=== PATIENT | female | born 1945 | race Caucasian/White ===

== ENCOUNTER 2017-10-17 00:57 | Inpatient (IN) ==
[2017-10-17 04:19] LABS: Alanine Aminotransferase 23 U/L (12-78); Albumin Level 2.9 gm/dL (3.4-5.0); Albumin/Globulin Ratio 0.7 (1.1-1.8); Alkaline Phosphatase 104 U/L (46-116); Anion Gap 10.9 mEq/L (5-15); Aspartate Amino Transferase 18 U/L (15-37); Bilirubin,Total 0.2 mg/dL (0.2-1.0); Blood Urea Nitrogen 26 mg/dL (7-18); Carbon Dioxide 28 mmol/L (21.0-32.0); Chloride 103 mmol/L (98-107); Creatine Kinase 109 U/L (26-192); Globulin 4.3 gm/dl (1.3-3.2); Glucose 372 mg/dL (74-106); Potassium 3.9 mmoL/L (3.5-5.1); Sodium 138 mmol/L (136-145); Total Protein,Serum 7.2 gm/dL (6.4-8.2)
[2017-10-17 04:41] LABS: Hematocrit 42.2 % (37.0-47.0); Mean Corpuscular HGB Conc 33.1 g/dL (31.8-35.4); Mean Corpuscular Hemoglobin 30.7 pg (27.0-31.2); Red Blood Count 4.54 M/mm3 (4.20-5.40); Red Cell Distribution Width 12.9 % (11.5-17.5); White Blood Count 5.1 K/mm3 (4.8-10.8)
[2017-10-17 04:43] LABS: Basophils % 0.6 % (0.1-2.0); Eosinophils % 1.9 % (0.1-12.0); Lymphocytes # 1.1 K/mm3 (0.7-4.5); Mean Platelet Volume 8.8 fl (7.4-10.4); Neutrophils # 3.4 K/mm3 (1.8-7.8); Platelet Count 216 K/mm3 (142-424)
[2017-10-17 04:44] LABS: Eosinophils # 0.1 K/mm3 (0.0-0.4); Monocytes # 0.4 K/mm3 (0.1-1.0)
--- NOTE | 2017-10-17 08:26 | History & Physical Report ---
*Admission Date: 10/17/17 <Mirtha Souza 10/17/17 08:37> *Chief complaint: high blood pressure and chest pain <Mirtha Souza 08:37> *History of present illness: Ms. Guerra is a 72-year-old female with a history of type 2 diabetes, hypertension, hypothyroidism, and hyperlipidemia. She is a patient of Dr. Ángel Ramirez. She states yesterday she began having pain around the lower part of her chest on both sides. She took her blood pressure and it was 230/ 120. She called EMS to come and check her blood pressure. She states when they checked it it was the same, therefore they brought her to the emergency room. She states she was given medication in the emergency room and her blood pressure did come down. She is not currently having any chest pain. Her troponin was elevated, therefore cardiology was consulted. <Mirtha Souza 10/17/17 08:37> [facility] History Medical History: Reports:: Diabetes Mellitus Type 2, Hyperlipidemia, Hypertension Denies:: Cancer, Congestive Heart Failure, Chronic Obstructive Pulmonary Disease (COPD), Diabetes Mellitus Type 1, MRSA <Dre Souza10/17/17 08:37 > Other Medical History: Reports: Cataracts, Hypothyroidism <Dre Souza 08:37> Laterality Cases: Bilateral: Cataract <Dre Souza10/17/17 08:37> Other Surgeries: Yes: Tubal Ligation <Mirtha Souza 10/17/17 08:37> Amputation: No <Mirtha Souza 10/17/17 08:37> Fractures: No <Mirtha Souza 10/17/17 08:37> - *Social History Educational Level: Completed High School <Mirtha Souza 10/17/17 08:37> Smoking Status: Former smoker <Mirtha Souza 10/17/17 08:37> Alcohol Intake: never <Mirtha Souza 10/17/17 08:37> Occupational Status: unemployed <Mirtha Souza 10/17/17 08:37> Housing: house <Mirtha Souza 10/17/17 08:37> Household Members: spouse <Mirtha Souza 10/17/17 08:37> - Psychiatric History Expresses thoughts of harming self/others: None <Mirtha Souza 10/17/17 08: 37> Suicide Plan Description: No Plan <Mirtha Souza 10/17/17 08:37> *Family Hx:: Cancer, Hyperlipidemia, Hypertension, no Heart Attack, no Stroke <Mirtha Souza 10/17/17 08:37> Review of Systems - Constitutional Denies body ache(s), Denies fever(s), Denies headache(s), Denies weakness < Mirtha Souza 10/17/17 08:37> - Eyes Denies blurry vision, Denies double vision <Mirtha Souza 10/17/17 08:37> - ENT Denies nasal congestion, Denies sore throat <Mirtha Souza 10/17/17 08:37> - *Cardiovascular Reports chest pain, Denies shortness of breath, Denies irregular heart rhythm <Mirtha Souza 10/17/17 08:37> - *Respiratory Denies cough, Denies shortness of breath <Mirtha Souza 10/17/17 08:37> - *Gastrointestinal Denies abdominal pain, Denies loose stools, Denies nausea, Denies vomiting < Mirtha Souza 10/17/17 08:37> - *Genitourinary Denies difficulty urinating, Denies painful urination <Mirtha Souza 08:37> - *Musculoskeletal Denies joint pain, Denies body aches <Mirtha Souza 10/17/17 08:37> - *Neurologic Denies headache(s), Denies dizziness, Denies weakness <Mirtha Souza 08:37> Meds Home Medications Medication Instructions Recorded Confirmed Type Doxazosin Mesylate [Doxazosin 2mg 2 mg PO DAILY 10/17/17 10/17/17 History Tab] Gabapentin [Gabapentin 300mg Cap] 300 mg PO DAILY 10/17/17 10/17/17 History Insulin Aspart [Novolog] 15 unit SQ AC 10/17/17 10/17/17 History Insulin Glargine,Hum.rec.anlog 45 unit SQ BID 10/17/17 10/17/17 History [Toujeo Solostar] Levothyroxine Sodium 125 mcg PO DAILY 10/17/17 10/17/17 History [Levothyroxine 125mcg (0.125mg) Tab] Metformin HCl [Metformin 500mg 500 mg PO BID 10/17/17 10/17/17 History Tablet] Metoprolol Succinate 25 mg PO DAILY 10/17/17 10/17/17 History Metoprolol Succinate 50 mg PO HS 10/17/17 10/17/17 History Pravastatin Sodium [Pravachol] 80 mg PO DAILY 10/17/17 10/17/17 History dilTIAZem HCl [Cardizem 180mg ER 180 mg PO DAILY 10/17/17 10/17/17 History Cap] <Tu Schroeder - 10/17/17 12:03> Allergies Allergy/AdvReac Type Severity Reaction Status Date / Time Sulfa (Sulfonamide Allergy Severe S-ANAPHYLAX Verified 10/17/17 01:03 Antibiotics) IS [SULFA (SULFONAMIDE ANTIBIOTICS)] <Tu Schroeder - 10/17/17 12:03> Exam Vital signs and Labs for Last 24 Hours: Temp Pulse Resp BP Pulse Ox 98.5 F 77 18 179/64 93 L 10/17/17 07:23 10/17/17 08:00 10/17/17 07:23 10/17/17 07:23 10/17/17 07:23 Laboratory Results - last 24 hr 10/17/17 05:05: Total Creatine Kinase 123, CK-MB (CK-2) 3.1 D, CK-MB (CK-2) Rel Index 2.5, Troponin I 0.56 H 10/17/17 06:12: POC Glucose 296 10/17/17 07:30: Total Creatine Kinase 133, CK-MB (CK-2) 3.6, CK-MB (CK-2) Rel Index 2.7, Troponin I 1.17 H <Tu Schroeder - 10/17/17 12:03> Temp Pulse Resp BP Pulse Ox 98.5 F 74 18 179/64 93 L 10/17/17 07:23 10/17/17 07:23 10/17/17 07:23 10/17/17 07:23 10/17/17 07:23 Lab Results 10/17/17 01:15: WBC 5.1, RBC 4.54, Hgb 14.0, Hct 42.2, MCV 93.0, MCH 30.7, MCHC 33.1, RDW 12.9, Plt Count 216, MPV 8.8, Neut % (Auto) 67.0, Lymph % (Auto) 22.0 , Emmons % (Auto) 7.0, Eos % (Auto) 1.9, Baso % (Auto) 0.6, Neut # (Auto) 3.4, Lymph # (Auto) 1.1, Emmons # (Auto) 0.4, Eos # (Auto) 0.1, Baso # (Auto) 0.0 10/17/17 01:30: Sodium 138, Potassium 3.9, Chloride 103, Carbon Dioxide 28, Anion Gap 10.9, BUN 26 H, Creatinine 1.13 H, Estimated Creat Clear 38, Estimated GFR 47 L, Est GFR ( Amer) 57 L, Glucose 372 H, Calcium 9.0, Total Bilirubin 0.2, AST 18, ALT 23, Alkaline Phosphatase 104, Total Creatine Kinase 109, CK-MB (CK-2) 1.2, CK-MB (CK-2) Rel Index 1.1, Troponin I < 0.02, Total Protein 7.2, Albumin 2.9 L, Globulin 4.3 H, Albumin/Globulin Ratio 0.7 L 10/17/17 05:05: Total Creatine Kinase 123, CK-MB (CK-2) 3.1 D, CK-MB (CK-2) Rel Index 2.5, Troponin I 0.56 H 10/17/17 06:12: POC Glucose 296 <Mirtha Souza - 10/17/17 08:37> I & O for Last 24 hours: Intake & Output 10/14/17 10/15/17 10/16/17 10/17/17 11:59 11:59 11:59 11:59 Intake Total Balance Weight 125 lb 9.6 oz <Tu Schroeder - 10/17/17 12:03> Intake & Output 10/14/17 10/15/17 10/16/17 10/17/17 11:59 11:59 11:59 11:59 Intake Total Balance Weight 125 lb 9.6 oz <Mirtha Souza - 10/17/17 08:37> - Constitutional no acute distress <Mirtha Souza 10/17/17 08:37> - *Routine HEENT Exam Head: Present: normocephalic, atraumatic <Mirtha Souza 10/17/17 08:37> Eye: Present: EOMI, PERRL <Mirtha Souza 10/17/17 08:37> ENT: Present: mucous membranes dry <Mirtha Souza 10/17/17 08:37> - *Routine Neck Exam Present: supple, full ROM <Mirtha Souza 10/17/17 08:37> - *Routine Respiratory Exam Present: CTA bilaterally <Mirtha Souza 10/17/17 08:37> - *Routine Cardiovascular Exam Present: RRR <Mirtha Souza 10/17/17 08:37> - *Routine Abdominal Exam Present: soft, normoactive bowel sounds. Absent: tenderness <Mirtha Souza 10/17/17 08:37> - *Routine Extremities Exam Present: edema <Mirtha Souza 10/17/17 08:37> - *Routine Skin Exam Present: intact <Mirtha Souza 10/17/17 08:37> - *Routine Neurological Exam Present: alert, oriented X3 <Mirtha Souza 10/17/17 08:37> H&P: Result - Labs Labs: Cardiac Enzymes 10/17/17 10/17/17 Range/Units 05:05 07:30 Total Creatine Kinase 123 133 (26-192) U/L CK-MB (CK-2) 3.1 D 3.6 (0.0-3.6) ng/ml Troponin I 0.56 H 1.17 H (0.00-0.06) ng/ml <Tu Schroeder - 10/17/17 12:03> <Mirtha Souza 10/17/17 08:37> - Impressions CXR - Borderline cardiomegaly, no acute finding <Mirtha Souza 10/17/17 08:37> Assessment and Plan (1) Chest pain Current visit: Yes Status: Acute Category: Medical Code(s): R07.9 - Chest pain, unspecified (2) Elevated troponin Current visit: Yes Status: Acute Category: Medical Code(s): R74.8 - Abnormal levels of other serum enzymes (3) Hypertension Current visit: Yes Status: Chronic Category: Medical Code(s): I10 - Essential (primary) hypertension (4) Type 2 diabetes mellitus Current visit: Yes Status: Chronic Category: Medical Code(s): E11.9 - Type 2 diabetes mellitus without complications (5) Hyperlipidemia Current visit: Yes Status: Chronic Category: Medical Code(s): E78.5 - Hyperlipidemia, unspecified (6) Hypothyroid Current visit: Yes Status: Chronic Category: Medical Code(s): E03.9 - Hypothyroidism, unspecified <Mirtha Souza - 10/17/17 08:23> (1) Non-ST elevation [place] (NSTEMI) Current visit: Yes Status: Acute Category: Medical Code(s): I21.4 - Non- ST elevation (NSTEMI) myocardial infarction (2) Hypertensive urgency Current visit: Yes Status: Acute Category: Medical Code(s): I16.0 - Hypertensive urgency (3) Hypertension Current visit: Yes Status: Chronic Category: Medical Code(s): I10 - Essential (primary) hypertension (4) Type 2 diabetes mellitus Current visit: Yes Status: Chronic Category: Medical Code(s): E11.9 - Type 2 diabetes mellitus without complications (5) Hyperlipidemia Current visit: Yes Status: Chronic Category: Medical Code(s): E78.5 - Hyperlipidemia, unspecified (6) Hypothyroid Current visit: Yes Status: Chronic Category: Medical Code(s): E03.9 - Hypothyroidism, unspecified (7) Chronic renal insufficiency, stage III (moderate) Current visit: Yes Status: Chronic Category: Medical Code(s): N18.3 - Chronic kidney disease, stage 3 (moderate) <Tu Schroeder - 10/17/17 12:03> - Assessment and plan all Dx Assessment and Plan for all problems:: Patient seen and examined. She appears comfortable. BP not well controlled as yet. Concur with plan for cardiology consult in light of elevated Troponin c/w NSTEMI. <Tu Schroeder - 10/17/17 12:03> BP has improved slightly. Cardiology has been consulted for elevated troponin. CP has resolved. <Mirtha Souza - 10/17/17 08:37>
--- NOTE | 2017-10-17 09:29 | Consult Report ---
History of Present Illness Consult date: 10/17/17 Requesting physician: Tu Schroeder Consult reason: chest pain Chief complaint: chest pain Additional Medical History:: 1. Hypertension A. History of renal angiogram per patient several years ago without need for intervention, [place], [place] 2. Hyperlipidemia 3. Diabetes mellitus 15 years 4. History of tobacco use discontinued approximately 15 years ago 5. Obesity History of present illness: Ms. Guerra is a 72-year-old female with a history of type 2 diabetes, hypertension, hypothyroidism, and hyperlipidemia. She is a patient of Dr. Ángel Ramirez. She states yesterday she began having pain around the lower part of her chest on both sides. She took her blood pressure and it was 230/ 120. She called EMS to come and check her blood pressure. She states when they checked it it was the same, therefore they brought her to the emergency room. She states she was given medication in the emergency room and her blood pressure did come down. She is not currently having any chest pain. Her troponin was elevated, therefore cardiology was consulted. The above per Mirtha Souza PA-C for Dr. Schroeder. Patient denies any history of previous coronary artery disease with evaluation several years ago by Dr. Erika Muniz history of renal arteriogram performed in [facility] without need for intervention. Unknown as to whether patient had a cardiac catheterization at that time. [facility] History Medical History: Reports:: Diabetes Mellitus Type 2, Hyperlipidemia, Hypertension Denies:: Cancer, Congestive Heart Failure, Chronic Obstructive Pulmonary Disease (COPD), Diabetes Mellitus Type 1, MRSA Other Medical History: Reports: Cataracts, Hypothyroidism Laterality Cases: Bilateral: Cataract Other Surgeries: Yes: Tubal Ligation Amputation: No Fractures: No - *Social History Educational Level: Completed High School Smoking Status: Former smoker Alcohol Intake: never Occupational Status: unemployed Housing: house Household Members: spouse - Psychiatric History Expresses thoughts of harming self/others: None Suicide Plan Description: No Plan *Family Hx:: Cancer, Hyperlipidemia, Hypertension, no Heart Attack, no Stroke Meds Home Medications Medication Instructions Recorded Confirmed Type Doxazosin Mesylate [Doxazosin 2mg 2 mg PO DAILY 10/17/17 10/17/17 History Tab] Gabapentin [Gabapentin 300mg Cap] 300 mg PO DAILY 10/17/17 10/17/17 History Insulin Aspart [Novolog] 15 unit SQ AC 10/17/17 10/17/17 History Insulin Glargine,Hum.rec.anlog 45 unit SQ BID 10/17/17 10/17/17 History [Roeluprema Solostar] Levothyroxine Sodium 125 mcg PO DAILY 10/17/17 10/17/17 History [Levothyroxine 125mcg (0.125mg) Tab] Metformin HCl [Metformin 500mg 500 mg PO BID 10/17/17 10/17/17 History Tablet] Metoprolol Succinate 25 mg PO DAILY 10/17/17 10/17/17 History Metoprolol Succinate 50 mg PO HS 10/17/17 10/17/17 History Pravastatin Sodium [Pravachol] 80 mg PO DAILY 10/17/17 10/17/17 History dilTIAZem HCl [Cardizem 180mg ER 180 mg PO DAILY 10/17/17 10/17/17 History Cap] Allergies Allergy/AdvReac Type Severity Reaction Status Date / Time Sulfa (Sulfonamide Allergy Severe S-ANAPHYLAX Verified 10/17/17 01:03 Antibiotics) IS [SULFA (SULFONAMIDE ANTIBIOTICS)] Review of Systems - *Cardiovascular Reports chest pain - *Respiratory Reports shortness of breath with activity - *Gastrointestinal Denies abdominal pain - *Musculoskeletal Reports joint pain - *Neurologic Denies headache(s), Denies dizziness, Denies weakness Exam Vital signs and Labs for Last 24 Hours: Temp Pulse Resp BP Pulse Ox 98.5 F 74 18 179/64 93 L 10/17/17 07:23 10/17/17 07:23 10/17/17 07:23 10/17/17 07:23 10/17/17 07:23 Laboratory Results - last 24 hr 10/17/17 05:05: Total Creatine Kinase 123, CK-MB (CK-2) 3.1 D, CK-MB (CK-2) Rel Index 2.5, Troponin I 0.56 H 10/17/17 06:12: POC Glucose 296 10/17/17 07:30: Total Creatine Kinase 133, CK-MB (CK-2) 3.6, CK-MB (CK-2) Rel Index 2.7, Troponin I 1.17 H I & O for Last 24 hours: Intake & Output 10/14/17 10/15/17 10/16/17 10/17/17 11:59 11:59 11:59 11:59 Intake Total Balance Weight 125 lb 9.6 oz - *Routine Neck Exam Present: carotid bruit - *Routine Respiratory Exam Present: CTA bilaterally - *Routine Cardiovascular Exam Present: RRR, murmur - *Routine Abdominal Exam Present: soft. Absent: tenderness - *Routine Extremities Exam Comments: Chronic venous stasis changes of the lower extremities with 1+ edema noted bilaterally. Pedal pulses equal bilaterally. - *Routine Neurological Exam Present: alert, oriented X3, moving all extremities Assessment and Plan (1) Non-ST elevation [place] (NSTEMI) Current visit: Yes Status: Acute Category: Medical Code(s): I21.4 - Non- ST elevation (NSTEMI) myocardial infarction (2) Chest pain Current visit: Yes Status: Acute Category: Medical Code(s): R07.9 - Chest pain, unspecified (3) Elevated troponin Current visit: Yes Status: Acute Category: Medical Code(s): R74.8 - Abnormal levels of other serum enzymes (4) Hypertension Current visit: Yes Status: Chronic Category: Medical Code(s): I10 - Essential (primary) hypertension (5) Type 2 diabetes mellitus Current visit: Yes Status: Chronic Category: Medical Code(s): E11.9 - Type 2 diabetes mellitus without complications (6) Hyperlipidemia Current visit: Yes Status: Chronic Category: Medical Code(s): E78.5 - Hyperlipidemia, unspecified (7) Hypothyroid Current visit: Yes Status: Chronic Category: Medical Code(s): E03.9 - Hypothyroidism, unspecified - Assessment and plan all Dx Assessment and Plan for all problems:: 1. Due to chest pain with elevated troponins consistent with non-STEMI would recommend repeat proceeding with left heart catheterization today. 2. Due to elevated blood pressure would recommend increasing beta-dorota to 50 mg twice daily and adding PATI inhibitor. 3. Will try to discontinue diltiazem due to lower extremity edema 4. Due to non-STEMI and cardiac murmur on exam will obtain an echocardiogram 5. Due to carotid bruit on exam will obtain a carotid ultrasound. 6. Further recommendations to follow
--- NOTE | 2017-10-17 10:50 | Carotid Imaging Report ---
"Cerebrovascular Exam Indications: 785.9 Bruit. IMPRESSIONS 1. The bilateral vertebral arteries are patent with normal antegrade flow. 2. Study suggests less than 20% stenosis involving the right internal carotid artery and the left internal carotid artery. History: A bruit of the left carotid artery. A bruit of the right carotid artery. Coronary artery disease. Risk factors: Hypertension. Diabetes mellitus. Dyslipidemia. Carotid duplex study. Complete study and Doppler flow study including spectral analysis, color and sapp scale imaging. Height: Height: 160cm. Height: 63in. Weight: Weight: 129.3kg. Weight: 284.4lb. Body mass index: BMI: 50.5kg/m^2. Body surface area: BSA: 2.48m^2. Location: Bedside. Patient status: Inpatient. Tables: Arterial flow: + +--------+--------+ |Location |V sys |V ed | + +--------+--------+ |Right CCA - proximal|103cm/s |12.8cm/s| + +--------+--------+ |Right CCA - distal |71.7cm/s|14.5cm/s| + +--------+--------+ |Right ECA |93cm/s |--------| + +--------+--------+ |Right ICA - proximal|66.6cm/s|17cm/s | + +--------+--------+ |Right ICA - mid |67.9cm/s|18.9cm/s| + +--------+--------+ |Right ICA - distal |83.6cm/s|21.4cm/s| + +--------+--------+ |Right vertebral |37.5cm/s|--------| + +--------+--------+ |Left CCA - proximal |87.5cm/s|19.3cm/s| + +--------+--------+ |Left CCA - distal |79.3cm/s|17.8cm/s| + +--------+--------+ |Left ECA |73.7cm/s|--------| + +--------+--------+ |Left ICA - proximal |70.7cm/s|19.2cm/s| + +--------+--------+ |Left ICA - mid |68.9cm/s|18.6cm/s| + +--------+--------+ |Left ICA - distal |70.4cm/s|22.6cm/s| + +--------+--------+ |Left vertebral |60.1cm/s|--------| + +--------+--------+ Velocity ratios: + + + + + + | |Right, V sys|Right, V ed|Left, V sys|Left, V ed| + + + + + + |Max ICA/dist CCA|1.17 |1.48 |0.89 |1.27 | + + + + + + (Report amended ) Electronically signed by: Saúl Pacheco [id number]"
--- NOTE | 2017-10-17 11:05 | Pharmacy Consult Notes ---
[facility] Pharmacy VTE Monitoring - Patient Demographics Admission date: 10/17/17 Report Date: 10/17/17 Time: 11:05 Allergies/Adverse Reactions: Patient Allergies Sulfa (Sulfonamide Antibiotics) [SULFA (SULFONAMIDE ANTIBIOTICS)] Allergy ( Severe, Verified 10/17/17 01:03) S-ANAPHYLAXIS Height: 1.6 m Weight: 56.971 kg Patient Problems: Current Active Problems Hypertension (Chronic) Chest pain (Acute) Elevated troponin (Acute) Type 2 diabetes mellitus (Chronic) Hyperlipidemia (Chronic) Hypothyroid (Chronic) Non-ST elevation [place] (NSTEMI) (Acute) - VTE Risk Labs: VTE Related Lab Results Hgb 14.0 g/dL (12.2-16.2) 10/17/17 01:15 Hct 42.2 % (37.0-47.0) 10/17/17 01:15 Plt Count 216 K/mm3 (142-424) 10/17/17 01:15 BUN 26 mg/dL (7-18) H 10/17/17 01:30 Creatinine 1.13 mg/dL (0.55-1.02) H 10/17/17 01:30 Estimated Creat Clear 38 mL/min (0-300) 10/17/17 01:30 Was VTE Risk Assessment Performed: Yes VTE Score: 3 VTE Risk Level: Low Risk Clinical Trial Participant: No - Prophylaxis VTE Prophylaxis Ordered?: Yes Types of VTE Prophylaxis: TEDS Knee High Location of Applied Device: Not Applicable
[2017-10-18 05:51] LABS: Anion Gap 8.6 mEq/L (5-15); Potassium 3.6 mmoL/L (3.5-5.1)
[2017-10-18 07:51] LABS: Basophils % 0.5 % (0.1-2.0); Eosinophils # 0.2 K/mm3 (0.0-0.4); Eosinophils % 2.7 % (0.1-12.0); Hematocrit 40.4 % (37.0-47.0); Hemoglobin 12.9 g/dL (12.2-16.2); Lymphocytes # 1.3 K/mm3 (0.7-4.5); Lymphocytes % 22.4 K/mm3 (10-50); Mean Corpuscular HGB Conc 31.8 g/dL (31.8-35.4); Mean Corpuscular Volume 94.4 fl (81-99); Mean Platelet Volume 8.5 fl (7.4-10.4); Monocytes # 0.4 K/mm3 (0.1-1.0); Monocytes % 6.4 % (1.7-9.3); Platelet Count 225 K/mm3 (142-424); Red Blood Count 4.28 M/mm3 (4.20-5.40); Red Cell Distribution Width 13.2 % (11.5-17.5); White Blood Count 5.9 K/mm3 (4.8-10.8)
--- NOTE | 2017-10-18 08:19 | Progress Note ---
<Mirtha Souza - Last Filed: 10/18/17 08:17> Internal Medicine - PN: Subj *Date: 10/18/17 *Time: 08:17 Interval history: Patient is feeling much better today. She had a heart cath yesterday with 2 stents placed. She denies any pain today. Her blood pressure has still been elevated. Slept well last night and has been eating well. Exam Vital signs and Labs for Last 24 Hours: Temp Pulse Resp BP Pulse Ox 98 F 64 16 152/68 93 L 10/18/17 04:00 10/18/17 04:00 10/18/17 04:00 10/18/17 04:00 10/18/17 04:57 Laboratory Results - last 24 hr 10/17/17 07:30: Total Creatine Kinase 133, CK-MB (CK-2) 3.6, CK-MB (CK-2) Rel Index 2.7, Troponin I 1.17 H 10/17/17 11:48: Activated Clotting Time 332 H* 10/17/17 16:30: POC Glucose 154 10/17/17 20:01: POC Glucose 200 10/18/17 05:30: Sodium 138, Potassium 3.6, Chloride 105, Carbon Dioxide 28, Anion Gap 8.6, BUN 18 D, Creatinine 1.03 H, Estimated Creat Clear 40, Estimated GFR 53 L, Est GFR ( Amer) 64, Glucose 197 H 10/18/17 07:44: WBC 5.9, RBC 4.28, Hgb 12.9, Hct 40.4, MCV 94.4, MCH 30.0, MCHC 31.8, RDW 13.2, Plt Count 225, MPV 8.5, Neut % (Auto) 68.0, Lymph % (Auto) 22.4 , Woodson % (Auto) 6.4, Eos % (Auto) 2.7, Baso % (Auto) 0.5, Neut # (Auto) 4.0, Lymph # (Auto) 1.3, Woodson # (Auto) 0.4, Eos # (Auto) 0.2, Baso # (Auto) 0.0 I & O for Last 24 hours: Intake & Output 10/15/17 10/16/17 10/17/17 10/18/17 11:59 11:59 11:59 11:59 Intake Total 1775 / 1775 Output Total 900 / 900 Balance 875 / 875 Weight 125 lb 9.6 oz 280 lb 8 oz - Constitutional no acute distress - *Routine Respiratory Exam Present: CTA bilaterally - *Routine Cardiovascular Exam Present: RRR - *Routine Abdominal Exam Present: soft, normoactive bowel sounds. Absent: tenderness - *Routine Extremities Exam Present: edema Assessment and Plan (1) Non-ST elevation [place] (NSTEMI) Current visit: Yes Status: Acute Category: Medical Code(s): I21.4 - Non- ST elevation (NSTEMI) myocardial infarction (2) Hypertensive urgency Current visit: Yes Status: Acute Category: Medical Code(s): I16.0 - Hypertensive urgency (3) Hypertension Current visit: Yes Status: Chronic Category: Medical Code(s): I10 - Essential (primary) hypertension (4) Type 2 diabetes mellitus Current visit: Yes Status: Chronic Category: Medical Code(s): E11.9 - Type 2 diabetes mellitus without complications (5) Hyperlipidemia Current visit: Yes Status: Chronic Category: Medical Code(s): E78.5 - Hyperlipidemia, unspecified (6) Hypothyroid Current visit: Yes Status: Chronic Category: Medical Code(s): E03.9 - Hypothyroidism, unspecified (7) Chronic renal insufficiency, stage III (moderate) Current visit: Yes Status: Chronic Category: Medical Code(s): N18.3 - Chronic kidney disease, stage 3 (moderate) (8) Elevated troponin Current visit: Yes Status: Acute Category: Medical Code(s): R74.8 - Abnormal levels of other serum enzymes - Assessment and plan all Dx Assessment and Plan for all problems:: Patient doing well status post stenting. Cardiology to follow and will manage her blood pressure. <Tu Schroeder - Last Filed: 10/18/17 17:21> Internal Medicine - PN: Subj *Date: 10/18/17 *Time: 17:20 Exam Vital signs and Labs for Last 24 Hours: Temp Pulse Resp BP Pulse Ox 98 F 63 18 189/76 94 L 10/18/17 04:00 10/18/17 13:00 10/18/17 13:00 10/18/17 13:00 10/18/17 13:00 Laboratory Results - last 24 hr 10/17/17 20:01: POC Glucose 200 03/29/18 05:30: Sodium 138, Potassium 3.6, Chloride 105, Carbon Dioxide 28, Anion Gap 8.6, BUN 18 D, Creatinine 1.03 H, Estimated Creat Clear 40, Estimated GFR 53 L, Est GFR ( Amer) 64, Glucose 197 H 10/18/17 07:44: WBC 5.9, RBC 4.28, Hgb 12.9, Hct 40.4, MCV 94.4, MCH 30.0, MCHC 31.8, RDW 13.2, Plt Count 225, MPV 8.5, Neut % (Auto) 68.0, Lymph % (Auto) 22.4 , Woodson % (Auto) 6.4, Eos % (Auto) 2.7, Baso % (Auto) 0.5, Neut # (Auto) 4.0, Lymph # (Auto) 1.3, Woodson # (Auto) 0.4, Eos # (Auto) 0.2, Baso # (Auto) 0.0 10/18/17 11:41: POC Glucose 295 10/18/17 16:14: POC Glucose 221 I & O for Last 24 hours: Intake & Output 10/16/17 10/17/17 10/18/17 10/19/17 11:59 11:59 11:59 11:59 Intake Total 1775 / 1775 360 / 360 Output Total 900 / 900 650 / 650 Balance 875 / 875 -290 / -290 Weight 125 lb 9.6 oz 280 lb 8 oz Assessment and Plan (1) Non-ST elevation [place] (NSTEMI) Current visit: Yes Status: Acute Category: Medical Code(s): I21.4 - Non- ST elevation (NSTEMI) myocardial infarction (2) Hypertensive urgency Current visit: Yes Status: Acute Category: Medical Code(s): I16.0 - Hypertensive urgency (3) Hypertension Current visit: Yes Status: Chronic Category: Medical Code(s): I10 - Essential (primary) hypertension (4) Type 2 diabetes mellitus Current visit: Yes Status: Chronic Category: Medical Code(s): E11.9 - Type 2 diabetes mellitus without complications (5) Hyperlipidemia Current visit: Yes Status: Chronic Category: Medical Code(s): E78.5 - Hyperlipidemia, unspecified (6) Hypothyroid Current visit: Yes Status: Chronic Category: Medical Code(s): E03.9 - Hypothyroidism, unspecified (7) Chronic renal insufficiency, stage III (moderate) Current visit: Yes Status: Chronic Category: Medical Code(s): N18.3 - Chronic kidney disease, stage 3 (moderate) (8) Elevated troponin Current visit: Yes Status: Acute Category: Medical Code(s): R74.8 - Abnormal levels of other serum enzymes - Assessment and plan all Dx Assessment and Plan for all problems:: Patient seen and examined. Concur with above.
--- NOTE | 2017-10-18 08:56 | Progress Note ---
Subjective Date: 10/18/17 Time: 08:30 Principal diagnosis: NSTEMI Interval history: Neuro white female in bedside chair in no acute distress. No complaints overnight. Some soreness in the right wrist. Elevated blood pressure noted overnight with additional antihypertensive medication prescribed. Exam Vital signs and Labs for Last 24 Hours: Temp Pulse Resp BP Pulse Ox 98 F 64 16 152/68 93 L 10/18/17 04:00 10/18/17 04:00 10/18/17 04:00 10/18/17 04:00 10/18/17 04:57 Laboratory Results - last 24 hr 10/17/17 11:48: Activated Clotting Time 332 H* 10/17/17 16:30: POC Glucose 154 10/17/17 20:01: POC Glucose 200 10/18/17 05:30: Sodium 138, Potassium 3.6, Chloride 105, Carbon Dioxide 28, Anion Gap 8.6, BUN 18 D, Creatinine 1.03 H, Estimated Creat Clear 40, Estimated GFR 53 L, Est GFR ( Amer) 64, Glucose 197 H 10/18/17 07:44: WBC 5.9, RBC 4.28, Hgb 12.9, Hct 40.4, MCV 94.4, MCH 30.0, MCHC 31.8, RDW 13.2, Plt Count 225, MPV 8.5, Neut % (Auto) 68.0, Lymph % (Auto) 22.4 , [place] % (Auto) 6.4, Eos % (Auto) 2.7, Baso % (Auto) 0.5, Neut # (Auto) 4.0, Lymph # (Auto) 1.3, [place] # (Auto) 0.4, Eos # (Auto) 0.2, Baso # (Auto) 0.0 I & O for Last 24 hours: Intake & Output 10/15/17 10/16/17 10/17/17 10/18/17 11:59 11:59 11:59 11:59 Intake Total 1775 / 1775 Output Total 900 / 900 Balance 875 / 875 Weight 125 lb 9.6 oz 280 lb 8 oz - *Routine Respiratory Exam Present: CTA bilaterally - *Routine Cardiovascular Exam Present: RRR - *Routine Neurological Exam Present: alert, oriented X3, moving all extremities Progress Note: A&P (1) Non-ST elevation [place] (NSTEMI) Status: Acute Assessment and plan: Status post 2 drug-eluting stents placed to the circumflex artery. On dual antiplatelet therapy with aspirin and Brilinta. Remaining moderate disease of the LAD and right coronary artery to be treated medically. Normal ejection fraction. Current Visit: Yes (2) Hypertensive urgency Status: Acute Current Visit: Yes (3) Hypertension Status: Chronic Assessment and plan: Would recommend switching the patient's metoprolol to carvedilol in the setting of a diabetic patient. Will increase her lisinopril. Will use Norvasc as as needed medication. Recommend observing overnight due to these medication changes. Current Visit: Yes (4) Type 2 diabetes mellitus Status: Chronic Current Visit: Yes (5) Hyperlipidemia Status: Chronic Assessment and plan: Continue statin therapy. Current Visit: Yes (6) Hypothyroid Status: Chronic Current Visit: Yes (7) Chronic renal insufficiency, stage III (moderate) Status: Chronic Current Visit: Yes (8) Elevated troponin Status: Acute Current Visit: Yes Assessment and Plan for All Diagnoses:: See above.
--- NOTE | 2017-10-18 16:30 | Cardiology Report ---
PROCEDURE: 2-D M-mode and color Doppler study INDICATIONS FOR THE TEST: Chest pain COPD Heart Murmur Tobacco Smokingex Palpitations+ Fatigue Syncope Edema Hypertension+Diabetes Mellitus+ Rheumatic Fever SOB+[place]+Obesity+Hyperlipidemia+ Family History HD Additional History cad PATIENT INFORMATION HEIGHT: 63 WEIGHT: 285 GENDER: Female B/P: 179/64 2-D/M-MODE INTERPRETATION: 2-D MEASUREMENTS OBSERVED VALUES IN CMS Right Ventricular Dimension (RVDd) 2.5 Interventricular Septum (Thickness)(IVsd) 1.6 Left Ventricular Internal Dimensions(LVIDd) 4.3 Left Ventricular Posterior Wall (Thickness)(LVPWd) 1.6 Aortic Root 3.2 Aortic Cusp Separation 2.0 Left Atrial Dimensions (LAD) 3.8 2D 1. Technically difficult study because of the patient's factor and poor acoustic windows 2. The left atrium is mildly enlarged, left ventricle is normal size, mild concentric left ventricular hypertrophy, visually estimated ejection fraction 55% with no obvious regional wall motion abnormality. 3. The right atrium and right ventricle are normal size and contractility. 4. The aortic valve is minimally thickened and fibrosed. 5. The mitral and tricuspid valve leaflets are minimally thickened. 6. No significant pericardial effusion noted. 7. The pulmonic valve is poorly visualized. DOPPLER INTERROGATION: Doppler interrogation of the aortic, mitral and tricuspid valvular presence of mild mitral and tricuspid regurgitation, tricuspid and jet velocity insufficient for calculation of the right ventricular systolic pressure, diastolic parameters are inconclusive. CONCLUSION: 1. Technically difficult study because of the patient's factor and poor acoustic windows 2. Mildly enlarged left atrium, normal left ventricular size, mild concentric left ventricular hypertrophy visually estimated to fraction 55% no obvious regional wall motion abnormality, diastolic parameters are inconclusive. 3. Mild mitral and tricuspid 4. No significant pericardial effusion noted.
[2017-10-19 06:03] VITALS: BP 158/85
--- NOTE | 2017-10-19 08:17 | Progress Note ---
<Mirtha Souza - Last Filed: 10/19/17 08:16> Internal Medicine - PN: Subj *Date: 10/19/17 *Time: 08:16 Interval history: She states she is feeling well today. Her blood pressure has been better today. She tolerated her breakfast and slept well last night. She denies any pain. Exam Vital signs and Labs for Last 24 Hours: Temp Pulse Resp BP Pulse Ox 98.6 F 60 18 158/85 94 L 10/19/17 06:00 10/19/17 06:00 10/19/17 06:00 10/19/17 06:00 10/19/17 06:00 Laboratory Results - last 24 hr 10/18/17 06:08: POC Glucose 199 10/18/17 11:41: POC Glucose 295 10/18/17 16:14: POC Glucose 221 10/18/17 20:18: POC Glucose 309 10/19/17 06:11: POC Glucose 234 I & O for Last 24 hours: Intake & Output 10/16/17 10/17/17 10/18/17 10/19/17 11:59 11:59 11:59 11:59 Intake Total 1775 / 1775 900 / 900 Output Total 900 / 900 650 / 650 Balance 875 / 875 250 / 250 Weight 125 lb 9.6 oz 280 lb 8 oz 266 lb 2 oz - Constitutional no acute distress - *Routine Respiratory Exam Present: CTA bilaterally - *Routine Cardiovascular Exam Present: RRR - *Routine Abdominal Exam Present: soft, normoactive bowel sounds. Absent: tenderness - *Routine Extremities Exam Present: edema Assessment and Plan (1) Non-ST elevation [place] (NSTEMI) Current visit: Yes Status: Acute Category: Medical Code(s): I21.4 - Non- ST elevation (NSTEMI) myocardial infarction (2) Hypertensive urgency Current visit: Yes Status: Acute Category: Medical Code(s): I16.0 - Hypertensive urgency (3) Hypertension Current visit: Yes Status: Chronic Category: Medical Code(s): I10 - Essential (primary) hypertension (4) Type 2 diabetes mellitus Current visit: Yes Status: Chronic Category: Medical Code(s): E11.9 - Type 2 diabetes mellitus without complications (5) Hyperlipidemia Current visit: Yes Status: Chronic Category: Medical Code(s): E78.5 - Hyperlipidemia, unspecified (6) Hypothyroid Current visit: Yes Status: Chronic Category: Medical Code(s): E03.9 - Hypothyroidism, unspecified (7) Chronic renal insufficiency, stage III (moderate) Current visit: Yes Status: Chronic Category: Medical Code(s): N18.3 - Chronic kidney disease, stage 3 (moderate) (8) Elevated troponin Current visit: Yes Status: Acute Category: Medical Code(s): R74.8 - Abnormal levels of other serum enzymes - Assessment and plan all Dx Assessment and Plan for all problems:: Patient has been seen by cardiology and is stable to be discharged home today. <Tu Schroeder - Last Filed: 10/19/17 08:34> Internal Medicine - PN: Subj *Date: 10/19/17 *Time: 08:33 Exam Vital signs and Labs for Last 24 Hours: Temp Pulse Resp BP Pulse Ox 98.6 F 60 18 158/85 94 L 10/19/17 06:00 10/19/17 06:00 10/19/17 06:00 10/19/17 06:00 10/19/17 06:00 Laboratory Results - last 24 hr 10/18/17 06:08: POC Glucose 199 10/18/17 11:41: POC Glucose 295 10/18/17 16:14: POC Glucose 221 10/18/17 20:18: POC Glucose 309 10/19/17 06:11: POC Glucose 234 I & O for Last 24 hours: Intake & Output 10/16/17 10/17/17 10/18/17 10/19/17 11:59 11:59 11:59 11:59 Intake Total 1775 / 1775 900 / 900 Output Total 900 / 900 650 / 650 Balance 875 / 875 250 / 250 Weight 125 lb 9.6 oz 280 lb 8 oz 266 lb 2 oz Assessment and Plan (1) Non-ST elevation [place] (NSTEMI) Current visit: Yes Status: Acute Category: Medical Code(s): I21.4 - Non- ST elevation (NSTEMI) myocardial infarction (2) Hypertensive urgency Current visit: Yes Status: Acute Category: Medical Code(s): I16.0 - Hypertensive urgency (3) Hypertension Current visit: Yes Status: Chronic Category: Medical Code(s): I10 - Essential (primary) hypertension (4) Type 2 diabetes mellitus Current visit: Yes Status: Chronic Category: Medical Code(s): E11.9 - Type 2 diabetes mellitus without complications (5) Hyperlipidemia Current visit: Yes Status: Chronic Category: Medical Code(s): E78.5 - Hyperlipidemia, unspecified (6) Hypothyroid Current visit: Yes Status: Chronic Category: Medical Code(s): E03.9 - Hypothyroidism, unspecified (7) Chronic renal insufficiency, stage III (moderate) Current visit: Yes Status: Chronic Category: Medical Code(s): N18.3 - Chronic kidney disease, stage 3 (moderate) (8) Elevated troponin Current visit: Yes Status: Acute Category: Medical Code(s): R74.8 - Abnormal levels of other serum enzymes - Assessment and plan all Dx Assessment and Plan for all problems:: Patient seen and examined. Concur with plan for discharge.
--- NOTE | 2017-10-19 08:32 | Progress Note ---
Subjective Date: 10/19/17 Time: 08:24 Principal diagnosis: NSTEMI Interval history: Feeling better. No complaints. BP improved on multiple meds. OK for discharge home from cardiology standpoint. Exam Vital signs and Labs for Last 24 Hours: Temp Pulse Resp BP Pulse Ox 98.6 F 60 18 158/85 94 L 10/19/17 06:00 10/19/17 06:00 10/19/17 06:00 10/19/17 06:00 10/19/17 06:00 Laboratory Results - last 24 hr 10/18/17 06:08: POC Glucose 199 10/18/17 11:41: POC Glucose 295 10/18/17 16:14: POC Glucose 221 10/18/17 20:18: POC Glucose 309 10/19/17 06:11: POC Glucose 234 I & O for Last 24 hours: Intake & Output 10/16/17 10/17/17 10/18/17 10/19/17 11:59 11:59 11:59 11:59 Intake Total 1775 / 1775 900 / 900 Output Total 900 / 900 650 / 650 Balance 875 / 875 250 / 250 Weight 125 lb 9.6 oz 280 lb 8 oz 266 lb 2 oz - *Routine Respiratory Exam Present: CTA bilaterally - *Routine Cardiovascular Exam Present: RRR Progress Note: A&P (1) Non-ST elevation [place] (NSTEMI) Status: Acute Current Visit: Yes (2) Hypertensive urgency Status: Acute Current Visit: Yes (3) Hypertension Status: Chronic Current Visit: Yes (4) Type 2 diabetes mellitus Status: Chronic Current Visit: Yes (5) Hyperlipidemia Status: Chronic Current Visit: Yes (6) Hypothyroid Status: Chronic Current Visit: Yes (7) Chronic renal insufficiency, stage III (moderate) Status: Chronic Current Visit: Yes (8) Elevated troponin Status: Acute Current Visit: Yes Assessment and Plan for All Diagnoses:: Meds: ASA 81 mg daily Brilinta 90 mg BID atorvastatin 40 mg daily lisinopril 20 mg BID carvedilol 50 mg BID norvasc 10 mg daily Follow up in one week.
--- NOTE | 2017-10-20 14:47 | Discharge Summary ---
General - General Admission date: 10/17/17 <Mirtha Souza - 10/20/17 14:48> Discharge date: 10/19/17 <Mirtha Souza - 10/20/17 14:48> HPI HPI: Ms. Guerra is a 72-year-old female with a history of type 2 diabetes, hypertension, hypothyroidism, and hyperlipidemia. She is a patient of Dr. Ángel Ramirez. She states yesterday she began having pain around the lower part of her chest on both sides. She took her blood pressure and it was 230/ 120. She called EMS to come and check her blood pressure. She states when they checked it it was the same, therefore they brought her to the emergency room. She states she was given medication in the emergency room and her blood pressure did come down. She is not currently having any chest pain. Her troponin was elevated, therefore cardiology was consulted. <Mirtha Souza - 10/20/17 14:48> Hospital Course Hospital Course: Her BP remained elevated after her heart cath requiring titration of her medications and addition of Norvasc. At time of discharge, her blood pressures were trending downward and will be followed up with Dr. Newell as an outpt. <EldaTu Rito - 10/23/17 08:41> Her elevated troponins were consistent with a NSTEMI. Cardiology did a heart cath and the patient received 2 stents in the circumflex artery. They discontinued her diltiazem due to lower extremity edema. She was started on dual antiplatelet therapy with aspirin and Brilinta. She had a normal ejection fraction. Cardiology recommend switching the patient's metoprolol to carvedilol in the setting of a diabetic patient. They also started her on lisinopril. Her lisinopril had to be increased d/t continued elevation in BP. Due to carotid bruit on exam, a carotid ultrasound was ordered which showed less than 20% stenosis bilaterally. She was stable to be discharged home on ASA 81 mg daily, Brilinta 90 mg BID, atorvastatin 40 mg daily, lisinopril 20 mg BID , carvedilol 50 mg BID, and norvasc 10 mg daily. She will follow up with cardiology in one week. <Mirtha Souza - 10/20/17 14:48> Objective Vital signs: Temp Pulse Resp BP Pulse Ox 98.1 F 70 18 158/85 94 L 10/19/17 08:00 10/19/17 08:00 10/19/17 06:00 10/19/17 06:00 10/19/17 06:00 <EldaTu Rito - 10/23/17 08:41> Temp Pulse Resp BP Pulse Ox 98.1 F 70 18 158/85 94 L 10/19/17 08:00 10/19/17 08:00 10/19/17 06:00 10/19/17 06:00 10/19/17 06:00 <Mirtha Souza - 10/20/17 14:48> Narrative: - Constitutional no acute distress - *Routine HEENT Exam Head: Present: normocephalic, atraumatic Eye: Present: EOMI, PERRL ENT: Present: mucous membranes dry - *Routine Neck Exam Present: supple, full ROM - *Routine Respiratory Exam Present: CTA bilaterally - *Routine Cardiovascular Exam Present: RRR - *Routine Abdominal Exam Present: soft, normoactive bowel sounds. Absent: tenderness - *Routine Extremities Exam Present: edema - *Routine Skin Exam Present: intact - *Routine Neurological Exam Present: alert, oriented X3 <Mirtha Souza - 10/20/17 14:48> DS: Diagnosis - Discharge Diagnosis (1) Non-ST elevation [place] (NSTEMI) Status: Acute (2) Hypertensive urgency Status: Acute (3) Hypertension Status: Chronic (4) Type 2 diabetes mellitus Status: Chronic (5) Hyperlipidemia Status: Chronic (6) Hypothyroid Status: Chronic (7) Chronic renal insufficiency, stage III (moderate) Status: Chronic (8) Elevated troponin Status: Acute <Mirtha Souza - 10/20/17 14:34> (1) Non-ST elevation [place] (NSTEMI) Status: Acute (2) Hypertensive urgency Status: Acute (3) Hypertension Status: Chronic (4) Type 2 diabetes mellitus Status: Chronic (5) Hyperlipidemia Status: Chronic (6) Hypothyroid Status: Chronic (7) Chronic renal insufficiency, stage III (moderate) Status: Chronic (8) Elevated troponin Status: Acute <Elda,Tu Rito - 10/23/17 08:41> Discharge Plan - Patient Discharge Instructions ACTIVITY: Continue current activity <Mirtha Souza - 10/20/17 14:48> DIET: diabetic diet, low fat, low cholesterol, low salt diet <Mirtha Souza - 10/20/17 14:48> Patient Instructions: Heart-Healthy Diet <Tu Schroeder - 10/23/17 08:41> Forms: <EldaTu Rito - 10/23/17 08:41> - Follow up Plan Follow up with: Ángel Ramirez [Primary Care Provider] - 1 week <Tu Schroeder - 10/23/17 08:41> Disposition: Home, Self-Care <Tu Schroeder - 10/23/17 08:41> Home Medications: Home Medications Medication Instructions Recorded Confirmed Type Gabapentin [Gabapentin 300mg Cap] 300 mg PO DAILY 10/17/17 10/17/17 History Insulin Aspart [Novolog] 15 unit SQ AC 10/17/17 10/17/17 History Insulin Glargine,Hum.rec.anlog 45 unit SQ BID 10/17/17 10/17/17 History [Toujavedo Solostar] Levothyroxine Sodium 125 mcg PO DAILY 10/17/17 10/17/17 History [Levothyroxine 125mcg (0.125mg) Tab] Metformin HCl [Metformin 500mg 500 mg PO BID 10/17/17 10/17/17 History Tablet] <Tu Schroeder - 10/23/17 08:41> Prescriptions/Medication Reconciliation: New Aspirin [Aspirin 81mg EC Tab] 81 mg PO DAILY #30 tablet. Atorvastatin Calcium [Lipitor 40mg Tablet] 40 mg PO HS #30 tab Carvedilol [Coreg 25mg Tablet] 25 mg PO BID #60 tab Lisinopril [Zestril 20mg tab] 20 mg PO BID #60 tab Ticagrelor [Brilinta 90mg Tablet] 90 mg PO BID #60 tab Amlodipine Besylate [Norvasc 10mg tablet] 10 mg PO DAILY #30 tab Carvedilol [Coreg 25mg Tablet] 50 mg PO BID #120 tab Continue Metformin HCl [Metformin 500mg Tablet] 500 mg PO BID Levothyroxine Sodium [Levothyroxine 125mcg (0.125mg) Tab] 125 mcg PO DAILY Insulin Glargine,Hum.rec.anlog [Toujeo Solostar] 45 unit SQ BID Insulin Aspart [Novolog] 15 unit SQ AC Gabapentin [Gabapentin 300mg Cap] 300 mg PO DAILY Discontinued Metoprolol Succinate 25 mg PO DAILY Metoprolol Succinate 50 mg PO HS dilTIAZem HCl [Cardizem 180mg ER Cap] 180 mg PO DAILY Doxazosin Mesylate [Doxazosin 2mg Tab] 2 mg PO DAILY Pravastatin Sodium [Pravachol] 80 mg PO DAILY <Tu Schroeder - 10/07 08:41> - Additional Information Additional Information: Concur with above plan for discharge. <Tu Schroeder - 10/23/17 08:41>
== END 2017-10-19 09:38 | disposition home or self-care (01) ==
LOC: 2ND 00:57 → ER 00:57 → OBSVTOIN 03:05 → 2ND 03:10
PROVIDERS: ADMIT Family Medicine; ATTEND Family Medicine

== ENCOUNTER → 2018-05-16 09:49 | Outpatient (CLI) | payer MEDICARE, SELFPAY ==
--- NOTE | 2018-05-16 10:00 | US_ITS ---
US transvaginal HISTORY: ITS.REASON: POST MENOPAUSAL BLEEDING ORDERING PHYSICIAN: Ángel Ramirez PATIENT AGE: 72 years FINDINGS: The uterus is enlarged at 10 x 5 x 7 cm. The endometrium is thickened at 2.7 cm with heterogeneous echogenicity. The endometrium has an irregular appearance. The right ovary was not visualized. The left ovary measures 2.2 x 1.4 cm and has an unremarkable appearance. No cul-de-sac fluid is evident. IMPRESSION: Enlarged uterus with irregular thickened endometrium suspicious for endometrial carcinoma in this postmenopausal patient with bleeding. Endometrial hyperplasia also included in the differential diagnosis
== END ==
PROVIDERS: Visit Provider Family Medicine
DX: N95.0 Postmenopausal bleeding (principal)
CPT/HCPCS: 76830

== ENCOUNTER 2018-06-03 08:24 | Outpatient (CLI) | payer MEDICARE, SELFPAY ==
[2018-06-03] VITALS (11 sets, daily range): BP systolic 122–143; BP diastolic 53–67; PULSE 61–74; RESP 18; TEMP 36.4–36.6; O2SAT 97–99; BMI 47.8
[2018-06-03 09:29] LABS: Hemoglobin 7.4 g/dL (12.2-16.2)
[2018-06-03 13:41] LABS: Hematocrit 25.5 % (37.0-47.0)
[2018-06-03 13:45] LABS: Hemoglobin 7.9 g/dL (12.2-16.2)
== END 2018-06-03 14:20 | disposition home or self-care (01) ==
LOC: INF 08:24
PROVIDERS: Visit Provider Obstetrics & Gynecology Gynecologic Oncology
DX: D64.9 Anemia, unspecified (principal)
CPT/HCPCS: 36415; 36430; 85014; 85018; 86850; P9016

== ENCOUNTER 2018-06-05 08:31 | Outpatient (CLI) | payer MEDICARE, SELFPAY ==
[2018-06-05] VITALS (10 sets, daily range): BP systolic 131–153; BP diastolic 70–95; PULSE 59–84; RESP 18; TEMP 36.4–36.6; O2SAT 97–98; BMI 49.6
[2018-06-05 12:50] LABS: Hematocrit 29.7 % (37.0-47.0); Hemoglobin 9.3 g/dL (12.2-16.2)
== END 2018-06-05 12:50 | disposition home or self-care (01) ==
LOC: INF 08:31
PROVIDERS: Visit Provider Obstetrics & Gynecology Gynecologic Oncology
DX: D64.9 Anemia, unspecified (principal)
CPT/HCPCS: 36415; 36430; 85014; 85018; P9016

== ENCOUNTER 2019-01-02 19:22 | Observation (INO) ==
[2019-01-02 19:33] LABS: Basophils % 0.4 % (0.1-2.0); Eosinophils # 0.1 K/mm3 (0.0-0.4); Eosinophils % 0.8 % (0.1-12.0); Hematocrit 34.2 % (37.0-47.0); Hemoglobin 10.3 g/dL (12.2-16.2); Lymphocytes # 1.4 K/mm3 (0.7-4.5); Mean Corpuscular HGB Conc 30.1 g/dL (31.8-35.4); Mean Corpuscular Hemoglobin 24.5 pg (27.0-31.2); Mean Corpuscular Volume 81.2 fl (81-99); Mean Platelet Volume 7.7 fl (7.4-10.4); Monocytes # 0.7 K/mm3 (0.1-1.0); Monocytes % 6.2 % (1.7-9.3); Neutrophils # 8.4 K/mm3 (1.8-7.8); Neutrophils % 79.7 % (37.0-80.0); Platelet Count 345 K/mm3 (142-424); Red Blood Count 4.21 M/mm3 (4.20-5.40); Red Cell Distribution Width 16.1 % (11.5-17.5); White Blood Count 10.5 K/mm3 (4.8-10.8)
[2019-01-02 19:44] LABS: Appearance,Urine CLEAR (Clear); Bilirubin,Urine Negative (Negative); Blood, Urine Negative (Negative); Color,Urine YELLOW (Yellow); Glucose,Urine (UA) TRACE (Negative); Ketones,Urine Negative (Negative); Leukocyte Esterase,Urine Negative (Negative); Microscopic, Urine URINE MICROSCOPIC (MICROSCOPIC); PH,Urine 5.5 (5.0-8.5); Protein,Urine 2+ (Negative); Specific Gravity, Urine 1.025 (1.005-1.030); Urobilinogen,Urine 0.2 EU/dl (0.2)
[2019-01-02 19:51] LABS: RBC,Urine Occasional #/hpf (0-3); WBC,Urine Occasional #/hpf (0-3)
[2019-01-02 19:52] LABS: Bacteria,Urine 1+ /lpf
[2019-01-02 20:06] LABS: Alanine Aminotransferase 29 U/L (12-78); Albumin Level 3.1 gm/dL (3.4-5.0); Albumin/Globulin Ratio 0.7 (1.1-1.8); Alkaline Phosphatase 86 U/L (46-116); Anion Gap 13.3 mEq/L (5-15); Aspartate Amino Transferase 24 U/L (15-37); Bilirubin,Total 0.2 mg/dL (0.2-1.0); Blood Urea Nitrogen 32 mg/dL (7-18); C-Reactive Protein < 0.2 mg/L (0.0-0.9); Calcium 9.2 mg/dL (8.5-10.1); Carbon Dioxide 25 mmol/L (21.0-32.0); Chloride 106 mmol/L (98-107); Globulin 4.6 gm/dl (1.3-3.2); Glucose 57 mg/dL (74-106); Potassium 4.3 mmoL/L (3.5-5.1); Sodium 140 mmol/L (136-145); Total Protein,Serum 7.7 gm/dL (6.4-8.2)
[2019-01-02 20:24] LABS: Erythrocyte Sedimentation Rate > 140 mm/hr (0-30)
--- NOTE | 2019-01-02 20:51 | Emergency Department Note ---
ED Disposition Clinical Impression: Hypoglycemia, Chronic renal insufficiency, stage III (moderate), Elevated erythrocyte sedimentation rate, Gallstones, Bilateral lower leg cellulitis Hypothermia Qualifiers: Encounter type: initial encounter Qualified Code(s): T68.XXXA - Hypothermia, initial encounter Obesity Qualifiers: Obesity type: due to excess calories Obesity classification: adult class 3 (BMI >= 40) Serious obesity comorbidity presence: with serious comorbidity Body mass index: BMI 40.0-44.9 Qualified Code(s): E66.01 - Morbid (severe) obesity due to excess calories; Z68.41 - Body mass index (BMI) 40.0-44.9, adult Type 2 diabetes mellitus Qualifiers: Diabetes mellitus long term care pharmacist insulin use: with detention use Diabetes mellitus complication status: with other specified complication Qualified Code(s): E11.69 - Type 2 diabetes mellitus with other specified complication; 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 Anemia Qualifiers: Anemia type: unspecified type Qualified Code(s): D64.9 - Anemia, unspecified Hypothyroidism Qualifiers: Hypothyroidism type: acquired Qualified Code(s): E03.9 - Hypothyroidism, unspecified Disposition: Admitted as Observation Condition on Discharge: Good Instructions: DI for Hyperglycemia -- Adult Referrals: Ángel Ramirez [Primary Care Provider] - - Critical Care Critical Care Time: No Attestation: On 01/02/19, the high probability of a clinically significant, sudden or life threatening deterioration of the following system(s) required my full and direct attention, intervention and personal management. The time I documented below is in addition to time spent performing reported procedures but includes the following listed in this critical care notation. Medical Decision Making - Medical Records Medical records reviewed: Yes: I reviewed the patient's medical records. - Isiah Inquiry Pt receiving controlled substance: No Vital Signs: 01/02/19 19:24 01/02/19 20:36 01/02/19 21:46 Temperature 93.2 F L 94.2 F L 94.5 F L Temperature Source Rectal Rectal Oral Pulse Rate [Right] 58 L 65 69 Respiratory Rate 18 16 20 Blood Pressure [Right Arm] 169/79 H 182/62 H 157/107 H Blood Pressure Mean [Right Arm] 109 102 123 Blood Pressure Source [Right Arm] Automatic Cuff Automatic Cuff Automatic Cuff Blood Pressure Position [Right Arm] Supine Supine Supine 02 Sat by Pulse Oximetry 96 100 98 Oxygen Delivery Method Room Air Room Air Room Air 01/02/19 22:13 01/02/19 22:52 Temperature 97.5 F L 97.6 F Temperature Source Oral Oral Pulse Rate [Right] 68 69 Respiratory Rate 18 18 Blood Pressure [Right Arm] 150/66 H 147/79 H Blood Pressure Mean [Right Arm] 94 101 Blood Pressure Source [Right Arm] Automatic Cuff Automatic Cuff Blood Pressure Position [Right Arm] Supine Supine 02 Sat by Pulse Oximetry 99 100 Oxygen Delivery Method Room Air Room Air - Lab Data Lab results reviewed: Yes: I reviewed the patient's lab results. Lab Results 01/02/19 18:20: WBC 10.5, RBC 4.21, Hgb 10.3 L, Hct 34.2 L, MCV 81.2, MCH 24.5 L , MCHC 30.1 L, RDW 16.1, Plt Count 345, MPV 7.7, Neut % (Auto) 79.7, Lymph % (Auto) 13.0, [place] % (Auto) 6.2, Eos % (Auto) 0.8, Baso % (Auto) 0.4, Neut # (Au to) 8.4 H, Lymph # (Auto) 1.4, [place] # (Auto) 0.7, Eos # (Auto) 0.1, Baso # (Auto) 0.0, ESR > 140 H 01/02/19 18:20: Sodium 140, Potassium 4.3, Chloride 106, Carbon Dioxide 25, Anion Gap 13.3, BUN 32 H, Creatinine 1.27 H, Estimated Creat Clear 37, Estimated GFR 41 L, Est GFR ( Amer) 50 L, Glucose 57 L, Calcium 9.2, Total Bilirubin 0.2, AST 24, ALT 29, Alkaline Phosphatase 86, Troponin I < 0.02, C- Reactive Protein < 0.2, Total Protein 7.7, Albumin 3.1 L, Globulin 4.6 H, Albumin/Globulin Ratio 0.7 L 01/02/19 18:20: TSH 1.96 D, Thyroxine (T4) 9.6 01/02/19 18:38: Urine Color Yellow, Urine Appearance Clear, Urine pH 5.5, Ur Specific [place] 1.025, Urine Protein 2+, Urine Glucose (UA) Trace, Urine Ketones Negative, Urine Blood Negative, Urine Nitrate Negative, Urine Bilirubin Negative, Urine Urobilinogen 0.2, Ur Leukocyte Esterase Negative, Urine RBC Occasional, Urine WBC Occasional, Urine Bacteria 1+ 01/02/19 19:41: Lactate 0.8 Result diagrams: 01/02/19 18:20 01/02/19 18:20 Orders (Tests/Meds): ED MEDICATIONS Discontinued Medications Generic Name Dose Route Start Last Admin Trade Name Cally PRN Reason Stop Dose Admin Dextrose 50 ml 01/02/19 19:20 01/02/19 21:22 Dextrose 50% 50ml Syringe IVP 01/02/19 19:21 50 ml ONCE ONE Administration ORDERS Category Date Time Status CT abdomen pelvis wo con Stat Cat Scan 01/02/19 21:[address] head/brain wo con Stat Cat Scan 01/02/19 19:23 Taken XR chest AP Stat Exams 01/02/19 19:23 Taken Blood Culture Stat Micro 01/02/19 19:41 Received ECG Request by /Vanesa Stat Y 01/02/19 19:23 Ordered - Radiology Data #1 Image(s): Chest Image Reviewed: Yes I reviewed the patient's radiology image Preliminary Findings: Abnormal (cm) - CT Data CT Scan: Head, Abdomen, Pelvis Time Received: 23:[address] Reviewed: Yes: I have viewed the radiologist's interpretation Preliminary Findings: Abnormal (chronic changes ) - ECG Data Tracing #1 Arrhythmias present: sinus sofia Ischemic changes: non-specific ST-T wave changes - Physician Consults Physician Consulted: tory Reason -: Admission Dizzy HPI - General Chief Complaint: Dizziness Stated Complaint: hypoglycemia/ams Time Seen by Provider: 01/02/19 20:00 Mode of Arrival: EMS Source of Information: Patient, EMS, Medical Record Limitations: No Limitations Description of Symptoms (Recalled from ER Triage Doc. by RN): Pt states she stood up and felt dizzy, checked her FSBS but could not remember what it was, FSBS was 59 on arrival - History of Present Illness HPI Narrative: this wf was found to have dizzyness and has diabetes and was brought in for eval and was found to be hypothermic - no cough or other c/o - no abd pain MD complaint: dizziness Onset (ago): hour(s) Timing: sudden onset Description: lightheadedness History of similar episodes: No History of trauma: No Severity: moderate Associated symptoms: denies other symptoms - Related Data Home Medications Medication Instructions Recorded Confirmed Levothyroxine Sodium 125 mcg PO DAILY 10/17/17 11/19/18 [Levothyroxine 125mcg (0.125mg) Tab] Metformin HCl [Glucophage 500mg 500 mg PO BID 10/17/17 11/19/18 Tablet] Amlodipine Besylate [Norvasc 10mg 10 mg PO DAILY 05/18/18 11/19/18 tablet] Aspirin [Aspirin 81mg EC Tab] 81 mg PO DAILY 05/18/18 11/19/18 Atorvastatin Calcium [Lipitor 40mg 40 mg PO HS 05/18/18 11/19/18 Tablet] Carvedilol [Coreg 25mg Tablet] 25 mg PO BID 05/18/18 11/19/18 Insulin NPH Hum/Reg Insulin Hm 45 units SQ BID 05/18/18 11/19/18 [Novolin 70-30 100 Unit/ml Vial] Lisinopril [Zestril 20mg tab] 20 mg PO BID 05/18/18 11/19/18 Multivitamin with Iron 1 each PO DAILY 06/03/18 11/19/18 [Multivitamins with Iron] Ticagrelor [Brilinta 90mg Tablet] 90 mg PO BID 11/19/18 11/19/18 Allergies Allergy/AdvReac Type Severity Reaction Status Date / Time Sulfa (Sulfonamide Allergy Severe S-ANAPHYLAX Verified 11/19/18 11:48 Antibiotics) IS [SULFA (SULFONAMIDE ANTIBIOTICS)] [facility] History - Hepatitis A Screen Drug use history?: No High risk sexual behaviors?: No History of sexually transmitted infection?: No Currently employed?: No Childcare worker?: No Do you have indoor plumbing?: Yes Do you have electricity?: Yes Attestation statement:: This patient has been screened for Hepatitis A risk factors. I have reviewed the patient's past medical history: Yes Medical History: Reports:: Diabetes Mellitus Type 2, Hyperlipidemia, Hypertension Denies:: Cancer, Congestive Heart Failure, Chronic Obstructive Pulmonary Dise ase (COPD), Diabetes Mellitus Type 1, MRSA Other Medical History: Reports: Cataracts, Hypothyroidism Other Surgeries: Yes: Cardiac Catheterization, Coronary Stent, Tubal Ligation Amputation: No Fractures: No - Social History Smoking Status: Former smoker Alcohol Intake: never Alcohol Intake Frequency:: other Substance Use Type: denies use Occupational Status: unemployed Housing: house Household Members: spouse - Psychiatric History Expresses thoughts of harming self/others: None Suicide Plan Description: No Plan Family Hx:: Cancer, Hyperlipidemia, Hypertension ROS Obtained: Yes All systems reviewed & no additional complaints - Constitutional Constitutional: Denies fever(s), Reports weakness - Eyes Eyes: Denies change in vision - ENT Ears, Nose, Mouth, and Throat: Denies sore throat - Cardiovascular Cardiovascular: Denies chest pain at rest - Respiratory Respiratory: No cough - Gastrointestinal Gastrointestingal: Denies: abdominal pain - Genitourinary Female Genitourinary: Denies urinary frequency - Musculoskeletal Musculoskeletal: Denies joint pain - Integumentary/Breasts Skin/Breast: Denies rash - Neurologic Neurologic: Reports as per HPI, Denies focal weakness, Denies seizure-like activ ity Physical Exam - General General appearance: in no apparent distress, obese - Head Head exam: normocephalic - Eye Eye exam: Present: PERRL, EOMI. Absent: scleral icterus - ENT ENT exam: Present: mucous membranes dry - Neck Neck exam: Present: trachea midline - Respiratory Respiratory exam: Absent: respiratory distress - Cardiovascular Cardiovascular exam: Present: regular rate, systolic murmur, +S4 - Abdominal Exam Abdominal exam: Present: soft. Absent: tenderness Comment: has panniculus with chronic changes - Extremities Exam Extremities exam: Present: other (cnanges to lower ext - mild cellulitis ) - Neurological Exam Neurological exam: Present: alert, CN II-XII intact - Psychiatric Psychiatric exam: Absent: normal affect - Skin Skin exam: Absent: rash
[2019-01-02 21:27] LABS: Thyroid Stimulating Hormone 1.96 uIU/ml (0.358-3.740)
[2019-01-03 06:34] LABS: Basophils % 0.3 % (0.1-2.0); Eosinophils # 0.1 K/mm3 (0.0-0.4); Eosinophils % 1.8 % (0.1-12.0); Lymphocytes # 1.2 K/mm3 (0.7-4.5); Lymphocytes % 19.3 % (10-50); Mean Corpuscular HGB Conc 30.8 g/dL (31.8-35.4); Mean Platelet Volume 8.2 fl (7.4-10.4); Monocytes # 0.6 K/mm3 (0.1-1.0); Neutrophils # 4.5 K/mm3 (1.8-7.8); Neutrophils % 69.6 % (37.0-80.0); Platelet Count 269 K/mm3 (142-424); Red Blood Count 3.58 M/mm3 (4.20-5.40); Red Cell Distribution Width 16.1 % (11.5-17.5); White Blood Count 6.5 K/mm3 (4.8-10.8)
[2019-01-03 06:35] LABS: Anion Gap 11.8 mEq/L (5-15); Calcium 8.5 mg/dL (8.5-10.1); Potassium 3.8 mmoL/L (3.5-5.1)
[2019-01-03 06:47] LABS: Hemoglobin 8.9 g/dL (12.2-16.2)
--- NOTE | 2019-01-03 07:16 | History & Physical Report ---
*Admission Date: 01/03/19 *Chief complaint: Dizziness *History of present illness: 73-year-old female with diabetes presented to the emergency department after an episode of acute dizziness at home followed 30 minutes later by diaphoresis and weakness. Patient believes she was hypoglycemic and ate but got no response to her food intake and when she continued to feel poorly. Patient takes a split mix dose of insulin twice daily and reports taking her medicine as prescribed. She felt well other than the symptom of lightheadedness/dizziness and diaphoresis. Food intake is been normal for the day. In the emergency department patient was found to be hypoglycemic as well as hypothermic. Decision was made to admit the patient for IV fluids and blood sugar monitoring as well as warming. Patient denies fevers, chills, cough, shortness of breath, dysuria, urinary frequency, urinary urgency, nausea, vomiting, diarrhea, extremity pain. [facility] History I have reviewed the patient's past medical history: Yes Medical History: Reports:: Cancer (SEPTEMBER OF 2018), Coronary Artery Disease, Diabetes Mellitus Type 2, Hyperlipidemia, Hypertension, Myocardial Infarction Denies:: Congestive Heart Failure, Chronic Obstructive Pulmonary Disease (SENIOR ECOLOGIST D), Diabetes Mellitus Type 1, MRSA *Have you ever received a pneumonia vaccine?: Yes *Have you received a flu vaccine this season?: Yes Other Medical History: Reports: Arthritis, Cataracts, Hypothyroidism Laterality Cases: Bilateral: Cataract Other Surgeries: Yes: Cardiac Catheterization, Cardiac Surgery, Coronary Stent, Hysterectomy-Total, Tubal Ligation Amputation: No Fractures: No - *Social History Educational Level: Completed High School Smoking Status: Former smoker # Packs/Day (cigarettes): 1 Smoking End Date: 7 YEARS AGO Alcohol Intake: never Alcohol Intake Frequency:: other Substance Use Type: denies use *Occupational Status:: unemployed Housing: house Household Members: spouse *Travel in the last 8 weeks: None - Psychiatric History Expresses thoughts of harming self/others: None Suicide Plan Description: No Plan Family Hx:: Cancer, Hypertension Review of Systems - Constitutional Denies body ache(s), Denies chills, Denies excessive sweating - *Cardiovascular Denies chest pain, Denies chest pain at rest, Denies chest pain with activity - *Respiratory Denies chest congestion, Denies cough, Denies shortness of breath, Denies shortness of breath with activity - *Gastrointestinal Denies belching, Denies bloating, Denies change in bowel habits, Denies change in stools - *Neurologic Reports weakness, Denies localized weakness, Denies seizure-like activity Meds Home Medications Medication Instructions Recorded Confirmed Type Levothyroxine Sodium 150 mcg PO DAILY 10/17/17 01/03/19 History [Levothyroxine 125mcg (0.125mg) Tab] Metformin HCl [Glucophage 500mg 500 mg PO BID 10/17/17 01/03/19 History Tablet] Amlodipine Besylate [Norvasc 10mg 10 mg PO DAILY 05/18/18 01/03/19 History tablet] Aspirin [Aspirin 81mg EC Tab] 81 mg PO DAILY 05/18/18 01/03/19 History Atorvastatin Calcium [Lipitor 40mg 40 mg PO HS 05/18/18 01/03/19 History Tablet] Carvedilol [Coreg 25mg Tablet] 25 mg PO BID 05/18/18 01/03/19 History Insulin NPH Hum/Reg Insulin Hm 45 units SQ BID 05/18/18 01/03/19 History [Novolin 70-30 100 Unit/ml Vial] Lisinopril [Zestril 20mg tab] 20 mg PO BID 05/18/18 01/03/19 History Multivitamin with Iron 1 each PO DAILY 06/03/18 01/03/19 History [Multivitamins with Iron] Ticagrelor [Brilinta 90mg Tablet] 90 mg PO BID 11/19/18 01/03/19 History hydroCHLOROthiazide [HCTZ 25mg 25 mg PO DAILY 01/02/19 01/03/19 History tab] Allergies Allergy/AdvReac Type Severity Reaction Status Date / Time Sulfa (Sulfonamide Allergy Severe S-ANAPHYLAX Verified 11/19/18 11:48 Antibiotics) IS [SULFA (SULFONAMIDE ANTIBIOTICS)] Exam Vital signs and Labs for Last 24 Hours: Temp Pulse Resp BP Pulse Ox 98.3 F 76 20 177/75 H 95 01/03/19 04:00 01/03/19 04:00 01/03/19 04:00 01/03/19 04:00 01/03/19 04:00 Laboratory Results - last 24 hr 01/02/19 18:20: WBC 10.5, RBC 4.21, Hgb 10.3 L, Hct 34.2 L, MCV 81.2, MCH 24.5 L , MCHC 30.1 L, RDW 16.1, Plt Count 345, MPV 7.7, Neut % (Auto) 79.7, Lymph % (Auto) 13.0, [place] % (Auto) 6.2, Eos % (Auto) 0.8, Baso % (Auto) 0.4, Neut # (Auto) 8.4 H, Lymph # (Auto) 1.4, [place] # (Auto) 0.7, Eos # (Auto) 0.1, Baso # (Auto) 0.0, ESR > 140 H 01/02/19 18:20: Sodium 140, Potassium 4.3, Chloride 106, Carbon Dioxide 25, Anion Gap 13.3, BUN 32 H, Creatinine 1.27 H, Estimated Creat Clear 37, Estimated GFR 41 L, Est GFR ( Amer) 50 L, Glucose 57 L, Calcium 9.2, Total Bilirubin 0.2, AST 24, ALT 29, Alkaline Phosphatase 86, Troponin I < 0.02, C- Reactive Protein < 0.2, Total Protein 7.7, Albumin 3.1 L, Globulin 4.6 H, Albumin/Globulin Ratio 0.7 L 01/02/19 18:20: TSH 1.96 D, Thyroxine (T4) 9.6 01/02/19 18:38: Urine Color Yellow, Urine Appearance Clear, Urine pH 5.5, Ur Specific [place] 1.025, Urine Protein 2+, Urine Glucose (UA) Trace, Urine Ketones Negative, Urine Blood Negative, Urine Nitrate Negative, Urine Bilirubin Negative, Urine Urobilinogen 0.2, Ur Leukocyte Esterase Negative, Urine RBC Occasional, Urine WBC Occasional, Urine Bacteria 1+ 01/02/19 19:41: Lactate 0.8 01/03/19 01:42: POC Glucose 144 H 01/03/19 02:38: Troponin I < 0.02 01/03/19 05:59: Troponin I 0.03 01/03/19 05:59: WBC 6.5 D, RBC 3.58 L, Hgb 8.9 L D, Hct 29.0 L, MCV 81.0, MCH 25.0 L, MCHC 30.8 L, RDW 16.1, Plt Count 269, MPV 8.2, Neut % (Auto) 69.6, Lymph % (Auto) 19.3, [place] % (Auto) 9.0, Eos % (Auto) 1.8, Baso % (Auto) 0.3, Neut # (Auto) 4.5, Lymph # (Auto) 1.2, [place] # (Auto) 0.6, Eos # (Auto) 0.1, Baso # (Auto) 0.0 01/03/19 05:59: Sodium 139, Potassium 3.8, Chloride 106, Carbon Dioxide 25, Anion Gap 11.8, BUN 24 H, Creatinine 1.09 H, Estimated Creat Clear 35, Estimated GFR 49 L, Est GFR ( Amer) 60, Glucose 226 H D, Calcium 8.5, Magnesium 1.6 01/03/19 06:28: POC Glucose 239 H I & O for Last 24 hours: Intake & Output 12/31/18 01/01/19 01/02/19 01/03/19 11:59 11:59 11:59 11:59 Intake Total 378 / 378 Output Total 3200 / 3200 Balance -2822 / -2822 Weight 259 lb - Constitutional no acute distress - *Routine HEENT Exam Head: Present: normocephalic Eye: Present: EOMI, normal accommodation ENT: Present: mucous membranes moist - *Routine Neck Exam Present: supple, full ROM - *Routine Respiratory Exam Present: CTA bilaterally - *Routine Cardiovascular Exam Present: RRR, Normal S1, Normal S2 - *Routine Abdominal Exam Present: soft Comments: Abdomen is obese with large pannus with chronic edematous changes to the inferior abdomen. Inguinal spaces are mildly erythematous - *Routine Extremities Exam Present: edema Assessment and Plan (1) Hypoglycemia Current visit: Yes Status: Acute Category: Medical Code(s): E16.2 - Hypoglycemia, unspecified Upper glycemia is corrected, fluids will be discontinued and we will continue to monitor her blood sugar during the day today. (2) Hypothermia Current visit: Yes Status: Acute Qualifiers: Encounter type: initial encounter Qualified Code(s): T68.XXXA - Hypothermia, initial encounter Category: Medical Code(s): T68.XXXA - Hypothermia, initial encounter Hypothermia has improved. Continue to monitor body temperature (3) Obesity Current visit: Yes Status: Acute Qualifiers: Obesity type: due to excess calories Obesity classification: adult class 3 (BMI >= 40) Serious obesity comorbidity presence: with serious comorbidity Body mass index: BMI 40.0-44.9 Qualified Code(s): E66.01 - Morbid (severe) obesity due to excess calories; Z68.41 - Body mass index (BMI) 40.0-44.9, adult Category: Medical Code(s): E66.9 - Obesity, unspecified (4) Chronic renal insufficiency, stage III (moderate) Current visit: Yes Status: Chronic Category: Medical Code(s): N18.3 - Chronic kidney disease, stage 3 (moderate) - Assessment and plan all Dx Assessment and Plan for all problems:: 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
--- NOTE | 2019-01-03 07:35 | Pharmacy Consult Notes ---
[facility] Pharmacy VTE Monitoring - Patient Demographics Admission date: 01/03/19 Report Date: 01/03/19 Time: 07:35 Allergies/Adverse Reactions: Patient Allergies Sulfa (Sulfonamide Antibiotics) [SULFA (SULFONAMIDE ANTIBIOTICS)] Allergy (Severe, Verified 11/19/18 11:48) S-ANAPHYLAXIS Height: 1.57 m Weight: 117.48 kg Patient Problems: Current Active Problems (Updated 01/02/19 @ 23:28 by Kraig Gasca MD) Type 2 diabetes mellitus (Chronic) Hypothyroid (Chronic) Chronic renal insufficiency, stage III (moderate) (Chronic) Hypoglycemia (Acute) Hypothermia (Acute) Obesity (Acute) Anemia (Acute) Elevated erythrocyte sedimentation rate (Acute) Gallstones (Acute) Bilateral lower leg cellulitis (Acute) - VTE Risk Labs: VTE Related Lab Results Hgb 8.9 g/dL (12.2-16.2) L D 01/03/19 05:59 Hct 29.0 % (37.0-47.0) L 01/03/19 05:59 Plt Count 269 K/mm3 (142-424) 01/03/19 05:59 BUN 24 mg/dL (7-18) H 01/03/19 05:59 Creatinine 1.09 mg/dL (0.55-1.02) H 01/03/19 05:59 Estimated Creat Clear 35 mL/min (50-200) 01/03/19 05:59 Was VTE Risk Assessment Performed: Yes VTE Score: 7 VTE Risk Level: Moderate Risk Clinical Trial Participant: No - Prophylaxis VTE Prophylaxis Ordered?: Yes Types of VTE Prophylaxis: TEDS Knee High
--- NOTE | 2019-01-03 10:15 | Cardiology Report ---
PROCEDURE: 2-D M-mode and color Doppler study INDICATIONS FOR THE TEST: Chest pain COPD Heart Murmur Tobacco Smoking Palpitations+ Fatigue Syncope Edema+ Hypertension+Diabetes Mellitus+ Rheumatic Fever SOB+[place] Obesity+Hyperlipidemia+ Family History HD Additional History CAD, STENT, VA PATIENT INFORMATION HEIGHT: 66 WEIGHT:258 GENDER: Female B/P:147/79 2-D/M-MODE INTERPRETATION: 2-D MEASUREMENTS OBSERVED VALUES IN CMS Right Ventricular Dimension (RVDd) 2.4 Interventricular Septum (Thickness)(IVsd) 1.3 Left Ventricular Internal Dimensions(LVIDd) 4.7 Left Ventricular Posterior Wall (Thickness)(LVPWd) 1.6 Aortic Root 3.5 Aortic Cusp Separation 2.0 Left Atrial Dimensions (LAD) 4.2 2D 1. Left atrium is mildly enlarged, left ventricle is normal size, mild concentric left ventricular hypertrophy, visually estimated ejection fraction 50% with no regional wall motion abnormality. 2. The right atrium and right ventricle are mildly enlarged with normal contractility 3. The aortic valve is thickened and calcified leaflet continue to display mobility. 4. The mitral and tricuspid valve leaflets are minimally thickened. 5. The pulmonic valve is poorly visualized. 6. No significant pericardial effusion noted. DOPPLER INTERROGATION: Doppler interrogation of the aortic, mitral and tricuspid valvular presence of mild mitral and tricuspid regurgitation, calculated right ventricular systolic pressure is 52 mmHg consistent with moderate hypertension, grade 1 diastolic dysfunction seen with tissue Doppler evidence of raised left atrial pressure. CONCLUSION: 1. Biatrial enlargement, normal left ventricular size, visually estimated ejection fraction 50% with no regional wall motion abnormality, grade 1 diastolic dysfunction seen with tissue Doppler evidence of raised left atrial pressure. 2. Mildly enlarged right ventricle with normal contractility. 3. Mild mitral and tricuspid regurgitation, calculated right ventricular systolic pressure is 52 mmHg consistent with moderate pulmonary hypertension. 4. No significant pericardial effusion noted.
--- NOTE | 2019-01-03 13:15 | Discharge Summary ---
General - General Admission date:: 01/03/19 Discharge date: 01/03/19 HPI HPI: 73-year-old female with diabetes presented to the emergency department after an episode of acute dizziness at home followed 30 minutes later by diaphoresis and weakness. Patient believes she was hypoglycemic and ate but got no response to her food intake and when she continued to feel poorly. Patient takes a split mix dose of insulin twice daily and reports taking her medicine as prescribed. She felt well other than the symptom of lightheadedness/dizziness and diaphoresis. Food intake is been normal for the day. In the emergency department patient was found to be hypoglycemic as well as hypothermic. Decision was made to admit the patient for IV fluids and blood sugar monitoring as well as warming. Patient denies fevers, chills, cough, shortness of breath, dysuria, urinary frequency, urinary urgency, nausea, vomiting, diarrhea, extremity pain. Hospital Course Hospital Course: Patient was admitted and observed. Her hypothermia corrected overnight as did the hypoglycemia. When no further symptoms occurred and testing was negative patient was discharged to home. She will follow up with her PCP next week. Patient did have an echocardiogram that revealed moderate pulmonary hypertension. Objective Vital signs: Temp Pulse Resp BP Pulse Ox 97.7 F 75 20 157/62 H 98 01/03/19 12:00 01/03/19 12:00 01/03/19 12:00 01/03/19 12:00 01/03/19 12:00 Results Labs on day of discharge: Labs from last 24 hours 01/03/19 01/03/19 01/03/19 11:34 06:28 05:59 WBC RBC Hgb Hct MCV MCH MCHC RDW Plt Count MPV Neut % (Auto) Lymph % (Auto) [place] % (Auto) Eos % (Auto) Baso % (Auto) Neut # (Auto) Lymph # (Auto) [place] # (Auto) Eos # (Auto) Baso # (Auto) ESR Sodium 139 Potassium 3.8 Chloride 106 Carbon Dioxide 25 Anion Gap 11.8 BUN 24 H Creatinine 1.09 H Estimated Creat Clear 35 Estimated GFR 49 L Est GFR ( Amer) 60 Glucose 226 H D POC Glucose 274 H 239 H Lactate Calcium 8.5 Magnesium 1.6 Total Bilirubin AST ALT Alkaline Phosphatase Troponin I C-Reactive Protein Total Protein Albumin Globulin Albumin/Globulin Ratio TSH Thyroxine (T4) Urine Color Urine Appearance Urine pH Ur Specific [place] Urine Protein Urine Glucose (UA) Urine Ketones Urine Blood Urine Nitrate Urine Bilirubin Urine Urobilinogen Ur Leukocyte Esterase Urine RBC Urine WBC Urine Bacteria 01/03/19 01/03/19 01/03/19 05:59 05:59 02:38 WBC 6.5 D RBC 3.58 L Hgb 8.9 L D Hct 29.0 L MCV 81.0 MCH 25.0 L MCHC 30.8 L RDW 16.1 Plt Count 269 MPV 8.2 Neut % (Auto) 69.6 Lymph % (Auto) 19.3 [place] % (Auto) 9.0 Eos % (Auto) 1.8 Baso % (Auto) 0.3 Neut # (Auto) 4.5 Lymph # (Auto) 1.2 [place] # (Auto) 0.6 Eos # (Auto) 0.1 Baso # (Auto) 0.0 ESR Sodium Potassium Chloride Carbon Dioxide Anion Gap BUN Creatinine Estimated Creat Clear Estimated GFR Est GFR ( Amer) Glucose POC Glucose Lactate Calcium Magnesium Total Bilirubin AST ALT Alkaline Phosphatase Troponin I 0.03 < 0.02 C-Reactive Protein Total Protein Albumin Globulin Albumin/Globulin Ratio TSH Thyroxine (T4) Urine Color Urine Appearance Urine pH Ur Specific [place] Urine Protein Urine Glucose (UA) Urine Ketones Urine Blood Urine Nitrate Urine Bilirubin Urine Urobilinogen Ur Leukocyte Esterase Urine RBC Urine WBC Urine Bacteria 01/03/19 01/02/19 01/02/19 01:42 19:41 18:38 WBC RBC Hgb Hct MCV MCH MCHC RDW Plt Count MPV Neut % (Auto) Lymph % (Auto) [place] % (Auto) Eos % (Auto) Baso % (Auto) Neut # (Auto) Lymph # (Auto) [place] # (Auto) Eos # (Auto) Baso # (Auto) ESR Sodium Potassium Chloride Carbon Dioxide Anion Gap BUN Creatinine Estimated Creat Clear Estimated GFR Est GFR ( Amer) Glucose POC Glucose 144 H Lactate 0.8 Calcium Magnesium Total Bilirubin AST ALT Alkaline Phosphatase Troponin I C-Reactive Protein Total Protein Albumin Globulin Albumin/Globulin Ratio TSH Thyroxine (T4) Urine Color Yellow Urine Appearance Clear Urine pH 5.5 Ur Specific [place] 1.025 Urine Protein 2+ Urine Glucose (UA) Trace Urine Ketones Negative Urine Blood Negative Urine Nitrate Negative Urine Bilirubin Negative Urine Urobilinogen 0.2 Ur Leukocyte Esterase Negative Urine RBC Occasional Urine WBC Occasional Urine Bacteria 1+ 01/02/19 01/02/19 01/02/19 18:20 18:20 18:20 WBC 10.5 RBC 4.21 Hgb 10.3 L Hct 34.2 L MCV 81.2 MCH 24.5 L MCHC 30.1 L RDW 16.1 Plt Count 345 MPV 7.7 Neut % (Auto) 79.7 Lymph % (Auto) 13.0 [place] % (Auto) 6.2 Eos % (Auto) 0.8 Baso % (Auto) 0.4 Neut # (Auto) 8.4 H Lymph # (Auto) 1.4 [place] # (Auto) 0.7 Eos # (Auto) 0.1 Baso # (Auto) 0.0 ESR > 140 H Sodium 140 Potassium 4.3 Chloride 106 Carbon Dioxide 25 Anion Gap 13.3 BUN 32 H Creatinine 1.27 H Estimated Creat Clear 37 Estimated GFR 41 L Est GFR ( Amer) 50 L Glucose 57 L POC Glucose Lactate Calcium 9.2 Magnesium Total Bilirubin 0.2 AST 24 ALT 29 Alkaline Phosphatase 86 Troponin I < 0.02 C-Reactive Protein < 0.2 Total Protein 7.7 Albumin 3.1 L Globulin 4.6 H Albumin/Globulin Ratio 0.7 L TSH 1.96 D Thyroxine (T4) 9.6 Urine Color Urine Appearance Urine pH Ur Specific [place] Urine Protein Urine Glucose (UA) Urine Ketones Urine Blood Urine Nitrate Urine Bilirubin Urine Urobilinogen Ur Leukocyte Esterase Urine RBC Urine WBC Urine Bacteria DS: Diagnosis - Discharge Diagnosis (1) Hypoglycemia Status: Acute (2) Hypothermia Status: Acute (3) Obesity Status: Acute (4) Chronic renal insufficiency, stage III (moderate) Status: Chronic Discharge Plan - Patient Discharge Instructions ACTIVITY: Continue current activity DIET: continue same diet Patient Instructions: Anemia, Carbohydrate-Counting Diet, DI for Hypothermia, DI for Obesity -- Adult, DI for Hypoglycemia - Follow up Plan Follow up with: Ángel Ramirez [Primary Care Provider] - Disposition: Home, Self-[facility] Medications: Home Medications Medication Instructions Recorded Confirmed Type Levothyroxine Sodium 150 mcg PO DAILY 10/17/17 01/03/19 History [Levothyroxine 125mcg (0.125mg) Tab] Metformin HCl [Glucophage 500mg 500 mg PO BID 10/17/17 01/03/19 History Tablet] Amlodipine Besylate [Norvasc 10mg 10 mg PO DAILY 05/18/18 01/03/19 History tablet] Aspirin [Aspirin 81mg EC Tab] 81 mg PO DAILY 05/18/18 01/03/19 History Atorvastatin Calcium [Lipitor 40mg 40 mg PO HS 05/18/18 01/03/19 History Tablet] Carvedilol [Coreg 25mg Tablet] 25 mg PO BID 05/18/18 01/03/19 History Insulin NPH Hum/Reg Insulin Hm 45 units SQ BID 05/18/18 01/03/19 History [Novolin 70-30 100 Unit/ml Vial] Lisinopril [Zestril 20mg tab] 20 mg PO BID 05/18/18 01/03/19 History Multivitamin with Iron 1 each PO DAILY 06/03/18 01/03/19 History [Multivitamins with Iron] Ticagrelor [Brilinta 90mg Tablet] 90 mg PO BID 11/19/18 01/03/19 History hydroCHLOROthiazide [HCTZ 25mg 25 mg PO DAILY 01/02/19 01/03/19 History tab] Hydralazine HCl [Hydralazine HCl 25 mg PO BID 01/03/19 01/03/19 History 25mg Tablet] Prescriptions/Medication Reconciliation: Continued Metformin HCl [Glucophage 500mg Tablet] 500 mg PO BID Levothyroxine Sodium [Levothyroxine 125mcg (0.125mg) Tab] 150 mcg PO DAILY Insulin NPH Hum/Reg Insulin Hm [Novolin 70-30 100 Unit/ml Vial] 45 units SQ BID Lisinopril [Zestril 20mg tab] 20 mg PO BID Atorvastatin Calcium [Lipitor 40mg Tablet] 40 mg PO HS Aspirin [Aspirin 81mg EC Tab] 81 mg PO DAILY Amlodipine Besylate [Norvasc 10mg tablet] 10 mg PO DAILY Multivitamin with Iron [Multivitamins with Iron] 1 each PO DAILY Hydralazine HCl [Hydralazine HCl 25mg Tablet] 25 mg PO BID Carvedilol [Coreg 25mg Tablet] 25 mg PO BID Ticagrelor [Brilinta 90mg Tablet] 90 mg PO BID hydroCHLOROthiazide [HCTZ 25mg tab] 25 mg PO DAILY
== END 2019-01-03 16:39 | disposition home or self-care (01) ==
LOC: 2ND 19:22 → ER 19:22 → 2ND 01-03 01:10
PROVIDERS: ADMIT Family Medicine; ATTEND Family Medicine
DX: Z68.42 Body mass index [BMI] 45.0-49.9, adult; Z88.2 Allergy status to sulfonamides; D64.9 Anemia, unspecified; N18.3 Chronic kidney disease, stage 3 (moderate); E78.5 Hyperlipidemia, unspecified; Z79.84 Long term (current) use of oral hypoglycemic drugs; Z79.82 Long term (current) use of aspirin; E66.01 Morbid (severe) obesity due to excess calories; Z79.899 Other long term (current) drug therapy; I12.9 Hypertensive chronic kidney disease with stage 1 through stage 4 chronic kidney disease, or unspecified chronic kidney disease; E03.9 Hypothyroidism, unspecified; T68.XXXA Hypothermia, initial encounter; E11.649 Type 2 diabetes mellitus with hypoglycemia without coma
CPT/HCPCS: 36415; 70450; 71010; 71045; 74176; 80048; 80053; 81001; 82962; 83605; 83735; 84436; 84443; 84484; 85025; 85651; 86140; 87040; 93005; 93306; 96365; 96375; 99285; G0378

== ENCOUNTER → 2020-09-21 14:38 | Outpatient (POV) | payer MEDICARE, SELFPAY | PROVIDERS: Visit Provider Dermatology | DX: Z00.00 Encounter for general adult medical examination without abnormal findings (principal) ==

== ENCOUNTER 2021-03-09 12:58 | Emergency (ER) | payer MEDICARE, SELFPAY ==
[2021-03-09 14:45] VITALS: BP 199/68; PULSE 70; RESP 20; TEMP 36.4; O2SAT 94; BMI 54.1
--- NOTE | 2021-03-09 15:03 | XR_ITS ---
PROCEDURE: XR CHEST 2V CLINICAL HISTORY: shortness of breath, edema COMPARISON: CR CXR2V XR chest 2V from 10/17/2017 CR XR CHEST AP from 09/30/2019 FINDINGS: There is mild cardiomegaly without failure. Trace bilateral effusions. No lobar consolidation or collapse. Upper thoracic curvature convex right IMPRESSION: Cardiomegaly with trace bilateral effusions Dictated by: Saúl Pacheco MD 03/09/2021 15:26 Saúl Pacheco MD in [place] 03/09/2021 15:26
--- NOTE | 2021-03-09 15:32 | HMH.EDUTC ---
[facility] [place] Disposition Clinical Impression: Bronchitis Disposition: Home, Self-Care Condition on Discharge: Good Instructions: DI for Acute Bronchitis Additional Instructions: Drink plenty of fluids. Take tylenol or ibuprofen for pain or fever. Take the medications as directed. Follow up with your regular doctor. GO TO THE ER FOR ANY WORSENING SYMPTOMS Quarantine until you know the results of your covid-19 test. If it is positive, the health department should call you and give you further instructions about your length of Quarantine and other thing. Prescriptions: Amoxicillin/Potassium Clav [Augmentin 875-125 Tablet] 1 tab PO Q12H 10 Days #20 tab Transmission Status: Received by [facility] Benzonatate [Tessalon Perle 100mg Cap] 100 mg PO TIDP PRN #30 cap PRN Reason: Cough Transmission Status: Received by [facility] Referrals: Ángel Ramirez [Primary Care Provider] - Time of Disposition: 16:03 Medical Decision Making - Medical Records Medical records reviewed: No: I reviewed the patient's medical records. - Isiah Inquiry Pt receiving controlled substance: No Vital Signs: 03/09/21 14:45 03/09/21 15:59 Temperature 97.6 F 98 F Temperature Source Oral Pulse Rate 76 Pulse Rate [Left Radial] 70 Respiratory Rate 20 22 Blood Pressure 178/71 H Blood Pressure [Left Arm] 199/68 H Blood Pressure Mean [Left Arm] 111 Blood Pressure Source [Left Arm] Automatic Cuff Blood Pressure Position [Left Arm] Sitting 02 Sat by Pulse Oximetry 94 L Oxygen Delivery Method Room Air - Lab Data Lab results reviewed: Yes: I reviewed the patient's lab results. [facility] [place] HPI - General Stated complaint: cough, weakness, sob, zac Time Seen by Provider: 03/09/21 14:35 Mode of Arrival: Wheelchair Source of Information: Patient Limitations: No Limitations Description of Symptoms (Recalled from Triage Doc. by RN): pt reports non-productive cough, weakness and congestion for approx 1 week HEENT Symptoms (Recalled from RN notes): No Resp Symptoms (Recalled from RN notes): Yes (pt reports cough) Skin Symptoms (Recalled from RN notes): No MS Symptoms (Recalled from RN notes): No Functional Status (Recalled from RN notes): pt reports generalized weakess when up moving around - History of Present Illness Provider Complaint: She states that she has had chest congestion and she has got out of breath with walking for the past 1 week. She denies any chest pain. She denies any fever, chills, body aches. She has been vaccinated against covid-19. - Related Data Home Medications Medication Instructions Recorded Confirmed Levothyroxine Sodium 150 mcg PO DAILY 10/17/17 01/31/19 [Levothyroxine 125mcg (0.125mg) Tab] Metformin HCl [Glucophage 500mg 500 mg PO BID 10/17/17 01/31/19 Tablet] Amlodipine Besylate [Norvasc 10mg 10 mg PO DAILY 05/18/18 01/31/19 tablet] Aspirin [Aspirin 81mg EC Tab] 81 mg PO DAILY 05/18/18 01/31/19 Atorvastatin Calcium [Lipitor 40mg 40 mg PO HS 05/18/18 01/31/19 Tablet*] Insulin NPH Hum/Reg Insulin Hm 45 units SQ BID 05/18/18 01/31/19 [Novolin 70-30 100 Unit/ml Vial] carvediloL [Coreg 25mg Tablet] 25 mg PO BID 05/18/18 01/31/19 lisinopriL [Zestril 20mg tab] 20 mg PO BID 05/18/18 01/31/19 Multivitamin with Iron 1 each PO DAILY 06/03/18 01/31/19 [Multivitamins with Iron] Ticagrelor [Brilinta 90mg 90 mg PO BID 11/19/18 01/31/19 Tablet] hydroCHLOROthiazide [HCTZ 25mg 25 mg PO DAILY 01/02/19 01/31/19 tab] Hydralazine HCl [Hydralazine HCl 25 mg PO BID 01/03/19 01/31/19 25mg Tablet] Previous Rx's Medication Instructions Recorded Amoxicillin/Potassium Clav 1 tab PO Q12H 10 Days #20 tab 03/09/21 [Augmentin 875-125 Tablet] Benzonatate [Tessalon Perle 100mg 100 mg PO TIDP PRN #30 cap 03/09/21 Cap] Allergies Allergy/AdvReac Type Severity Reaction Status Date / Time Sulfa (Sulfonamide Allergy Severe S
[2021-03-09 15:59] VITALS: BP 178/71; PULSE 76; RESP 22; TEMP 36.6
== END 2021-03-09 16:15 | disposition home or self-care (01) ==
PROVIDERS: Emergency Provider Nurse Practitioner Family; PCP Family Medicine
DX: J20.9 Acute bronchitis, unspecified (principal); I25.10 Atherosclerotic heart disease of native coronary artery without angina pectoris; E11.9 Type 2 diabetes mellitus without complications; I10 Essential (primary) hypertension; E78.5 Hyperlipidemia, unspecified; I25.2 Old myocardial infarction; E03.9 Hypothyroidism, unspecified; Z87.891 Personal history of nicotine dependence; Z88.2 Allergy status to sulfonamides
CPT/HCPCS: G0463; 71046; 99203; U0003

== ENCOUNTER 2021-03-15 16:20 | Emergency (ER) | payer MEDICARE, SELFPAY ==
[2021-03-15 16:24] VITALS: BP 175/74; PULSE 70; RESP 16; TEMP 36.9; O2SAT 94; BMI 53.6
--- NOTE | 2021-03-15 16:42 | XR_ITS ---
PROCEDURE INFORMATION: Exam: XR Chest Exam date and time: 03/15/2021 4:42 PM Age: 75 years old Clinical indication: Cough and shortness of breath TECHNIQUE: Imaging protocol: XR of the chest. Views: 1 view. COMPARISON: CR XR CHEST 2V 03/09/2021 3:11 PM FINDINGS: Lungs: Mild atelectasis at the right lung base. No acute airspace consolidation. Pleural spaces: Unremarkable. No pleural effusion. No pneumothorax. Heart/Mediastinum: Cardiomegaly. Bones/joints: Unremarkable. IMPRESSION: Cardiomegaly and mild right basilar atelectasis.
--- NOTE | 2021-03-15 16:44 | HMH.EDGENADL ---
ED Disposition Clinical Impression: Dehydration Upper respiratory infection Qualifiers: URI type: unspecified viral URI Qualified Code(s): J06.9 - Acute upper respiratory infection, unspecified Disposition: Home, Self-Care Condition on Discharge: Fair Instructions: DI for Dehydration -- Adult Additional Instructions: You have been evaluated for cough and lightheadedness. This is likely due to upper respiratory infection and dehydration. Please stay hydrated. Take all medications as prescribed, including the antibiotics you were given earlier this week. Follow-up with your primary care doctor within 24 to 48 hours. Return to the emergency department for any new or worsening symptoms. Referrals: Provider,Referral, [Primary Care Provider] - Time of Disposition: 19:29 - Critical Care Critical Care Time: No Attestation: On , the high probability of a clinically significant, sudden or life threatening deterioration of the following system(s) required my full and direct attention, intervention and personal management. The time I documented below is in addition to time spent performing reported procedures but includes the following listed in this critical care notation. Medical Decision Making - Medical Records Medical records reviewed: Yes: I reviewed the patient's medical records. - Isiah Inquiry Pt receiving controlled substance: No Vital Signs: 03/15/21 16:24 Temperature 98.5 F Temperature Source Oral Pulse Rate [Right Radial] 70 Respiratory Rate 16 Blood Pressure [Right Arm] 175/74 H Blood Pressure Mean [Right Arm] 107 Blood Pressure Source [Right Arm] Automatic Cuff Blood Pressure Position [Right Arm] Sitting 02 Sat by Pulse Oximetry 94 L Oxygen Delivery Method Room Air - Lab Data Lab Results 03/15/21 17:27: WBC 7.7, RBC 3.54 L, Hgb 10.3 L, Hct 33.2 L, MCV 93.6, MCH 29.1, MCHC 31.1 L, RDW 14.6, Plt Count 299, MPV 8.7, Neut % (Auto) 82.5 H, Lymph % (Auto) 9.3 L, [place] % (Auto) 5.2, Eos % (Auto) 2.3, Baso % (Auto) 0.6, Neut # (Auto) 6.4, Lymph # (Auto) 0.7, [place] # (Auto) 0.4, Eos # (Auto) 0.2, Baso # (Auto) 0.0 03/15/21 17:27: Sodium 141, Potassium 4.1, Chloride 107, Carbon Dioxide 28, Anion Gap 10.1, BUN 31 H, Creatinine 1.70 H, Estimated Creat Clear 24, Estimated GFR 29 L, Est GFR ( Amer) 36 L, Glucose 69 L, Calcium 8.7, Total Bilirubin 0.4, AST 23, ALT 18, Alkaline Phosphatase 81, Troponin I < 0.01, Total Protein 6.6, Albumin 3.3 L, Globulin 3.3 H, Albumin/Globulin Ratio 1.0 L 03/15/21 19:18: Urine Color Yellow, Urine Appearance Clear, Urine pH 5.5, Ur Specific [place] >= 1.030, Urine Protein 3+, Urine Glucose (UA) Negative, Urine Ketones Negative, Urine Blood Trace-i, Urine Nitrate Negative, Urine Bilirubin Negative, Urine Urobilinogen 0.2, Ur Leukocyte Esterase Negative, Urine RBC 3-5, Urine WBC Occasional, Ur Squamous Epith Cells 3-5, Urine Bacteria Trace Result diagrams: 03/15/21 17:27 03/15/21 17:27 Orders (Tests/Meds): ED MEDICATIONS Generic Name Dose Route Start Last Admin Trade Name Freq PRN Reason Stop Dose Admin Sodium Chloride 1,000 mls @ 999 mls/hr 03/15/21 16:45 03/15/21 17:33 Sod Chlor 0.9% 1000ml Bag IV 03/15/21 17:45 999 mls/hr .Q1H1M RENATO Administration Discontinued Medications Generic Name Dose Route Start Last Admin Trade Name Freq PRN Reason Stop Dose Admin Lorazepam 0.5 mg 03/15/21 18:07 03/15/21 18:42 Lorazepam 0.5mg Tablet PO 03/15/21 18:08 0.5 mg ONCE ONE Administration ORDERS Category Date Time Status Rapid PCR Covid and Flu A/B Stat Lab 03/15/21 16:43 Ordered Troponin I Q3H Lab 03/15/21 19:45 Ordered Troponin I Q3H Lab 03/15/21 22:45 Ordered ECG Request by /Vanesa Stat Y 03/15/21 16:43 Ordered - Radiology Data #1 Image(s): Chest Image Reviewed: Yes I reviewed the patient's radiology results, Yes I reviewed the patient's radiology image Preliminary Findings: Normal/NAD IMPRESSION: Cardiomegaly and m
[2021-03-15 17:39] LABS: Basophils % 0.6 % (0.1-2.0); Eosinophils # 0.2 K/mm3 (0.0-0.4); Eosinophils % 2.3 % (0.1-12.0); Hematocrit 33.2 % (37.0-47.0); Hemoglobin 10.3 g/dL (12.2-16.2); Lymphocytes # 0.7 K/mm3 (0.7-4.5); Lymphocytes % 9.3 % (10-50); Mean Corpuscular HGB Conc 31.1 g/dL (31.8-35.4); Mean Corpuscular Hemoglobin 29.1 pg (27.0-31.2); Mean Corpuscular Volume 93.6 fl (81-99); Mean Platelet Volume 8.7 fl (7.4-10.4); Monocytes # 0.4 K/mm3 (0.1-1.0); Monocytes % 5.2 % (1.7-9.3); Neutrophils # 6.4 K/mm3 (1.8-7.8); Neutrophils % 82.5 % (37.0-80.0); Platelet Count 299 K/mm3 (142-424); Red Blood Count 3.54 M/mm3 (4.20-5.40); Red Cell Distribution Width 14.6 % (11.5-17.5); White Blood Count 7.7 K/mm3 (4.8-10.8)
[2021-03-15 17:44] LABS: Alanine Aminotransferase 18 U/L (12-78); Albumin Level 3.3 g/dl (3.5-5.0); Alkaline Phosphatase 81 U/L (38-126); Anion Gap 10.1 mEq/L (5-15); Aspartate Amino Transferase 23 U/L (14-36); Bilirubin,Total 0.4 mg/dl (0.2-1.3); Blood Urea Nitrogen 31 mg/dl (7-17); Calcium 8.7 mg/dl (8.4-10.2); Carbon Dioxide 28 mmol/L (22.0-30.0); Chloride 107 mmol/L (98-107); Creatinine Clearance Estimated 24 mL/min (50-200); Estimated Glomerular Filt Rate 29 ml/min (>60); GFR (African American) 36 ML/MIN (>60); Globulin 3.3 g/dL (1.3-3.2); Glucose 69 mg/dl (74-100); Potassium 4.1 mmoL/L (3.5-5.1); Sodium 141 mmol/L (136-145); Total Protein,Serum 6.6 g/dl (6.3-8.2)
[2021-03-15 18:07] LABS: Troponin I < 0.01 ng/ml (0.00-0.034)
[2021-03-15 19:32] LABS: Microscopic, Urine URINE MICROSCOPIC (MICROSCOPIC)
[2021-03-15 19:37] LABS: Appearance,Urine CLEAR (Clear); Bilirubin,Urine Negative (Negative); Blood, Urine TRACE-I (Negative); Color,Urine YELLOW (Yellow); Glucose,Urine (UA) Negative (Negative); Ketones,Urine Negative (Negative); Leukocyte Esterase,Urine Negative (Negative); Nitrate,Urine Negative (Negative); PH,Urine 5.5 (5.0-8.5); Protein,Urine 3+ (Negative); Specific Gravity, Urine >= 1.030 (1.005-1.030); Urobilinogen,Urine 0.2 EU/dl (0.2)
[2021-03-15 19:50] LABS: WBC,Urine Occasional #/hpf (0-3)
[2021-03-15 19:51] LABS: Bacteria,Urine Trace /lpf
[2021-03-15 20:09] VITALS: BP 165/74; BP 171/78; BP 187/89; PULSE 76; PULSE 81; PULSE 85
[2021-03-15 20:58] VITALS: BP 165/74; PULSE 76; RESP 16; TEMP 36.9; O2SAT 94
== END 2021-03-15 21:00 | disposition home or self-care (01) ==
PROVIDERS: Emergency Provider Emergency Medicine
DX: E86.0 Dehydration (principal); J06.9 Acute upper respiratory infection, unspecified; I25.2 Old myocardial infarction; Z95.0 Presence of cardiac pacemaker; E11.9 Type 2 diabetes mellitus without complications; I25.10 Atherosclerotic heart disease of native coronary artery without angina pectoris; I10 Essential (primary) hypertension; E78.5 Hyperlipidemia, unspecified; Z88.2 Allergy status to sulfonamides; Z87.891 Personal history of nicotine dependence; Z79.899 Other long term (current) drug therapy
CPT/HCPCS: 71045; 80053; 81001; 84484; 85025; 99283

== ENCOUNTER 2021-03-17 15:58 | Observation (INO) | payer MEDICARE, SELFPAY ==
[2021-03-17 15:58] VITALS: BP 162/70; PULSE 69; RESP 22; TEMP 36.3; O2SAT 95; BMI 53.1
--- NOTE | 2021-03-17 16:03 | XR_ITS ---
PROCEDURE: XR CHEST PORTABLE CLINICAL HISTORY: cough COMPARISON: CR XR CHEST AP from 09/30/2019 CR XR CHEST 2V from 03/09/2021 CR XR CHEST PORTABLE from 03/15/2021 FINDINGS: Borderline cardiomegaly without failure. The lungs are clear without infiltrates, suspicious nodules, or pleural effusions. 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 Dictated by: Saúl Pacheco MD 03/17/2021 16:51 Saúl Pacheco MD in [place] 03/17/2021 16:51
--- NOTE | 2021-03-17 16:06 | ECG_ITS ---
APPROVED REPORT Exam: Resting ECG HR:67 bpm ECG Measurements Heart Rate 67 AXES NM 172 P 93 QRSd 98 QRS 10 QT 416 T 128 QTc 439 Conclusion Normal sinus rhythm T wave abnormality, consider lateral ischemia Abnormal ECG Electronically signed by : Avinash Pichardo MD 03/18/2021 18:54:58
[2021-03-17 16:31] LABS: Basophils % 0.3 % (0.1-2.0); Eosinophils # 0.2 K/mm3 (0.0-0.4); Eosinophils % 2.7 % (0.1-12.0); Hematocrit 31.9 % (37.0-47.0); Hemoglobin 9.9 g/dL (12.2-16.2); Lymphocytes # 0.7 K/mm3 (0.7-4.5); Lymphocytes % 10.9 % (10-50); Mean Corpuscular Hemoglobin 29.4 pg (27.0-31.2); Mean Corpuscular Volume 94.9 fl (81-99); Mean Platelet Volume 9.2 fl (7.4-10.4); Monocytes # 0.3 K/mm3 (0.1-1.0); Monocytes % 4.9 % (1.7-9.3); Neutrophils # 4.9 K/mm3 (1.8-7.8); Neutrophils % 81.2 % (37.0-80.0); Platelet Count 290 K/mm3 (142-424); Red Blood Count 3.36 M/mm3 (4.20-5.40); Red Cell Distribution Width 14.9 % (11.5-17.5)
--- NOTE | 2021-03-17 16:34 | HMH.EDGENADL ---
ED Disposition Clinical Impression: Cough Acute respiratory failure Qualifiers: Respiratory failure complication: hypoxia Qualified Code(s): J96.01 - Acute respiratory failure with hypoxia Disposition: Admitted as Observation Condition on Discharge: Good Time of Disposition: 18:58 - Critical Care Critical Care Time: No Attestation: On 03/17/21, the high probability of a clinically significant, sudden or life threatening deterioration of the following system(s) required my full and direct attention, intervention and personal management. The time I documented below is in addition to time spent performing reported procedures but includes the following listed in this critical care notation. Medical Decision Making - Medical Records Medical records reviewed: Yes: I reviewed the patient's medical records. - Isiah Inquiry Pt receiving controlled substance: No Vital Signs: 03/17/21 15:58 03/17/21 16:36 03/17/21 18:29 Temperature 97.4 F L 97.5 F L Temperature Source Oral Oral Pulse Rate 68 66 Pulse Rate [Right] 69 Respiratory Rate 22 17 22 Blood Pressure 150/60 H 145/65 H Blood Pressure [Right Arm] 162/70 H Blood Pressure Mean [Right Arm] 100 02 Sat by Pulse Oximetry 95 93 L Oxygen Delivery Method Room Air Nasal Cannula Oxygen Flow Rate (LPM) 96 - Lab Data Lab results reviewed: Yes: I reviewed the patient's lab results. Lab Results 03/17/21 16:10: WBC 6.0, RBC 3.36 L, Hgb 9.9 L, Hct 31.9 L, MCV 94.9, MCH 29.4, MCHC 31.0 L, RDW 14.9, Plt Count 290, MPV 9.2, Neut % (Auto) 81.2 H, Lymph % (Auto) 10.9, [place] % (Auto) 4.9, Eos % (Auto) 2.7, Baso % (Auto) 0.3, Neut # (Auto) 4.9, Lymph # (Auto) 0.7, [place] # (Auto) 0.3, Eos # (Auto) 0.2, Baso # (Auto) 0.0 03/17/21 16:10: Sodium 142, Potassium 4.5, Chloride 106, Carbon Dioxide 26, Anion Gap 14.5, BUN 36 H, Creatinine 1.80 H, Estimated Creat Clear 23, Estimated GFR 28 L, Est GFR ( Amer) 33 L, Glucose 135 H, Calcium 8.6, Troponin I < 0.01, NT-Pro-B Natriuret Pep 1500 H 03/17/21 18:05: SARS-CoV-2 (PCR) Not detected, Influenza A Untype (PCR) Not detected, Influenza Type B (PCR) Not detected Result diagrams: 03/17/21 16:10 03/17/21 16:10 Orders (Tests/Meds): ORDERS Category Date Time Status Troponin I Q3H Lab 03/17/21 19:15 Ordered Troponin I Q3H Lab 03/17/21 22:15 Ordered - Radiology Data #1 Image(s): Chest Image Reviewed: Yes I reviewed the patient's radiology results Preliminary Findings: Normal/NAD - ECG Data Tracing #1 I reviewed this ECG and interpreted as documented below: Normal sinus rhythm, 67 bpm, no ST elevation or depression, normal intervals, no ectopy. ECG initial impression date: 03/17/21 ECG initial impression time: 16:07 Medical Decision Narrative: 75yo F evaluated for hypoxia on exertion. Patient in no acute distress when sitting at rest has O2 sat of 93 to 95% on room air. Physical exam is unremarkable though significantly limited by body habitus. Routine laboratory studies reveal a creatinine of 1.8 with a GFR less than 25. This is consistent with recent lab work completed. EKG is unremarkable and reviewed as above. Chest x-ray shows no acute finding. Patient's lungs are clear on auscultation though she does have a coarse nonproductive cough at rest. Nursing was able to get the patient up and attempted to ambulate her but her O2 saturations fell to 88% immediately. Case discussed with Dr. Howe who agrees to admit the patient. He request an echocardiogram be ordered and for the patient to be diuresed given her BNP is 1500. Unable to perform CT PE given the patient's renal function. Covid swab is pending at this time. General Adult HPI - General Chief complaint: Shortness of Breath/Dyspnea Stated complaint: SOB Time Seen by Provider: 03/17/21 16:00 Mode of Arrival: EMS Limitations: No Limitations Description of Symptoms (Recalled from ER Triage Doc. by RN): PT VIA [facility] FROM HOME C/O
[2021-03-17 16:36] VITALS: BP 150/60; PULSE 68; RESP 17; O2SAT 93
[2021-03-17 16:41] LABS: Anion Gap 14.5 mEq/L (5-15); Blood Urea Nitrogen 36 mg/dl (7-17); Calcium 8.6 mg/dl (8.4-10.2); Carbon Dioxide 26 mmol/L (22.0-30.0); Chloride 106 mmol/L (98-107); Creatinine Clearance Estimated 23 mL/min (50-200); Estimated Glomerular Filt Rate 28 ml/min (>60); GFR (African American) 33 ML/MIN (>60); Glucose 135 mg/dl (74-100); Potassium 4.5 mmoL/L (3.5-5.1); Sodium 142 mmol/L (136-145)
[2021-03-17 16:55] LABS: NT Pro Brain Natriuretic Pep. 1500 pg/mL (0-125)
[2021-03-17 16:57] LABS: Troponin I < 0.01 ng/ml (0.00-0.034)
--- NOTE | 2021-03-17 18:00 | PC.NURSE ---
Dr Montilla speaking with Dr Howe at this time.
--- NOTE | 2021-03-17 18:01 | PC.NURSE ---
ATTEMPTED TO AMBULATE PT. PT UP TO SIDE OF BED, PT TOOK APPROX 4-5 STEPS BECAME SOB AND WAS UNABLE TO TOLERATE. 02 SATS DROPPED TO 88%
[2021-03-17 18:12] LABS: Coronavirus 19, PCR Not Detected (NotDetected); Influenza A, PCR Not Detected (NotDetected); Influenza B, PCR Not Detected (NotDetected)
--- NOTE | 2021-03-17 18:28 | PC.NURSE ---
REPORT GIVEN TO DAIEL, ROOM ASSIGNMENT 212.
[2021-03-17 18:29] VITALS: BP 145/65; PULSE 66; RESP 22; TEMP 36.4; O2SAT 2
[2021-03-17 19:40] VITALS: BP 142/58; PULSE 65; RESP 22; TEMP 36.6; O2SAT 95; BMI 57.7
--- NOTE | 2021-03-17 19:40 | PC.NURSE ---
patient up to floor via stretcher.
[2021-03-17 19:49] LABS: Troponin I < 0.01 ng/ml (0.00-0.034)
[2021-03-17 20:00] VITALS: PULSE 60; O2SAT 96
[2021-03-17 21:20] LABS: Glucose,Random 51 mg/dL (74-100)
[2021-03-17 21:44] LABS: Troponin I < 0.01 ng/ml (0.00-0.034)
[2021-03-18] VITALS (9 sets, daily range): BP systolic 121–163; BP diastolic 52–78; PULSE 60–71; RESP 18–20; TEMP 36.4–36.6; O2SAT 94–97; BMI 57.4
[2021-03-18 00:53] LABS: POC Glucose,Bedside 68 (70-110)
[2021-03-18 00:53] LABS: POC Glucose,Bedside 79 (70-110)
[2021-03-18 06:20] LABS: Basophils % 0.8 % (0.1-2.0); Eosinophils # 0.2 K/mm3 (0.0-0.4); Eosinophils % 4.1 % (0.1-12.0); Hematocrit 29.7 % (37.0-47.0); Lymphocytes # 0.9 K/mm3 (0.7-4.5); Mean Corpuscular HGB Conc 30.3 g/dL (31.8-35.4); Mean Corpuscular Hemoglobin 28.7 pg (27.0-31.2); Mean Corpuscular Volume 94.5 fl (81-99); Mean Platelet Volume 9.1 fl (7.4-10.4); Monocytes # 0.4 K/mm3 (0.1-1.0); Monocytes % 7.6 % (1.7-9.3); Neutrophils # 3.4 K/mm3 (1.8-7.8); Neutrophils % 69.5 % (37.0-80.0); Platelet Count 243 K/mm3 (142-424); Red Blood Count 3.14 M/mm3 (4.20-5.40); Red Cell Distribution Width 14.9 % (11.5-17.5); White Blood Count 4.9 K/mm3 (4.8-10.8)
[2021-03-18 06:51] LABS: Anion Gap 10.6 mEq/L (5-15); Blood Urea Nitrogen 37 mg/dl (7-17); Calcium 8.4 mg/dl (8.4-10.2); Carbon Dioxide 26 mmol/L (22.0-30.0); Chloride 108 mmol/L (98-107); Creatinine Clearance Estimated 23 mL/min (50-200); Estimated Glomerular Filt Rate 29 ml/min (>60); GFR (African American) 36 ML/MIN (>60); Glucose 96 mg/dl (74-100); Potassium 4.6 mmoL/L (3.5-5.1); Sodium 140 mmol/L (136-145)
--- NOTE | 2021-03-18 07:17 | P.CONPHA_ITS ---
[facility] VTE Monitoring - Patient Demographics Admission date: 03/17/21 Report Date: 03/18/21 Time: 07:17 Allergies/Adverse Reactions: Patient Allergies Sulfa (Sulfonamide Antibiotics) [SULFA (SULFONAMIDE ANTIBIOTICS)] Allergy (Severe, Verified 09/30/19 22:09) S-ANAPHYLAXIS Height: 1.6 m Weight: 146.964 kg Patient Problems: Current Active Problems Acute respiratory failure (Acute) Cough (Acute) - VTE Risk Labs: VTE Related Lab Results Hgb 9.0 g/dL (12.2-16.2) L 03/18/21 05:45 Hct 29.7 % (37.0-47.0) L 03/18/21 05:45 Plt Count 243 K/mm3 (142-424) 03/18/21 05:45 BUN 37 mg/dl (7-17) H 03/18/21 05:45 Creatinine 1.70 mg/dl (0.52-1.04) H 03/18/21 05:45 Estimated Creat Clear 23 mL/min (50-200) 03/18/21 05:45 VTE Score: 3 VTE Risk Level: Low Risk - Prophylaxis VTE Prophylaxis Ordered?: Yes Types of VTE Prophylaxis: TEDS Knee High, Pharmacological Location of Applied Device: Bilateral Lower Extremeties Pharmacologic Type: Enoxaparin
--- NOTE | 2021-03-18 08:00 | CA_ITS ---
APPROVED REPORT EXAM: Comprehensive 2D, Doppler, and color-flow Echocardiogram Apparel Machinery Instructor: Paola Ma RT(R) Ht: 5 ft 3 in Wt: 300lbs BSA: 2.30 BP: 145/65 mmHg Indications: respiratory failure, ex smoker, HTN, DM, SOB, obesity, hyperlipidemia, CAD, hx TN, hx CA, 1 cardiac stent Echo Enhancing Agent Indication: Endocardial border delineation Agent(s) / Amount(s) Used: Definity 2 cc 2D Dimensions LVOT 2.15 cm (M/F) 1.5-2.5 M-Mode Dimensions RVDd 2.99 cm (0.9-2.6) LA Diam 4.38 cm (1.9-4.0) LVDd 5.61 cm (3.5-5.7) Ao Diam 2.50 cm (2.0-3.7) LVDs 4.11 cm (3.5-5.7) IVSd 1.40 cm (0.6-1.1) PWd 1.12 cm (0.6-1.1) EF (Teich) 51.60% FS 26.70% EDV (Teich) 154.30 mL ESV (Teich) 74.70 mL LV Diastology E Decel Time 190.00 (160-240 msec) E/A Ratio 0.8 MED E' 7.60 (< 7 cm/sec) E'/MED E' Ratio 12.95 (>14) LAT E' 10.10 (<10 cm/sec) E/LAT E' Ratio 9.74 (>14) Mitral Valve MV E Max Baldev. 98.00 (40-130 cm/s) MV A Velocity 121.00 (40-130 cm/s) E/A Ratio 0.81 MV Decel. Time 190.00 (160-240 ms) MV PHT 56.00 ms Left Ventricle Left atrium is mildly enlarged, left ventricle is normal size, mild concentric left ventricular hypertrophy, visually estimated ejection fraction 55% with no regional wall motion abnormality, grade 1 diastolic dysfunction seen without tissue Doppler evidence of raise left atrial pressure. Definity contrast was utilized to delineate the endocardial surfaces. Right Ventricle Right atrium and right ventricle mildly enlarged with normal contractility. Aortic Valve Aortic valve is minimally thickened and fibrosed, there is no aortic stenosis or aortic insufficiency. Mitral Valve Mitral valve leaflets are minimally thickened and calcified, there is no mitral stenosis, there is mild mitral regurgitation. Tricuspid Valve Tricuspid valve grossly normal, there is mild tricuspid regurgitation, tricuspid regurgitation jet velocity is inadequate for calculation of the right ventricular systolic pressure. Pulmonic Valve Pulmonic valve is poorly visualized. Great Vessels Aortic root is normal size. Pericardium No significant pericardial effusion noted. Conclusion 1. Technically difficult study, Definity contrast was utilized to delineate the endocardial surfaces. 2. Mild biatrial enlargement, normal left ventricular size, mild concentric left ventricular hypertrophy, visually estimated ejection fraction 55% with no regional wall motion abnormality, grade 1 diastolic dysfunction seen without tissue Doppler evidence of raise left atrial pressure. 3. Mildly enlarged right ventricle with normal contractility. 4. Mild mitral and tricuspid regurgitation. 5. No significant pericardial effusion noted. Electronically signed by : Jhon Peters MD 03/18/2021 12:33:27
--- NOTE | 2021-03-18 08:56 | HMH.HP ---
*Admission Date: 03/17/21 <Mirtha Souza 03/18/21 09:06> *Chief complaint: shortness of breath <Mirtha Souza 03/18/21 09:06> *History of present illness: Ms. Guerra is a 75-year-old female with a history of hypertension, hyperlipidemia, type 2 diabetes, and history of an MS. She states she has been feeling poorly for the past few weeks. She was seen a week ago at the urgent treatment center and diagnosed with bronchitis. She had a negative Covid test at that time. She was prescribed antibiotics and sent home. She states she began feeling worse. Her shortness of breath was extremely worse when she was up ambulating around in her home. She has no supplemental oxygen at home. In the emergency room, her oxygen sats were 93 to 95% on room air and her renal functions were elevated. Her chest x-ray showed nothing acute. When nursing got her up to ambulate, her oxygen saturations dropped into the 80s. She was therefore admitted for further evaluation and treatment. An echo was ordered and she was given Lasix due to an elevated BNP of 1500. She had another Covid swab done in the emergency room and it was negative as well. Of note, her biologist aide is Dr. Newell but she has not seen them in a few years. <Mirtha Souza 03/18/21 09:06> [facility] History Medical History: Reports:: Coronary Artery Disease, Diabetes Mellitus Type 2, Hyperlipidemia, Hypertension, Internal Pacemaker, Myocardial Infarction Denies:: Cancer, Congestive Heart Failure, Chronic Obstructive Pulmonary Disease (COPD), Diabetes Mellitus Type 1, Lung Disease, MRSA, Seizures <Mirtha Souza 03/18/21 09:06> *Have you ever received a pneumonia vaccine?: No <Mirtha Souza 03/18/21 09:06> *Have you received a flu vaccine this season?: No <Mirtha Souza 03/18/21 09:06> Other Medical History: Reports: Arthritis, Cataracts, Hypothyroidism <Mirtha Souza 03/18/21 09:06> Other Surgeries: Yes: Cardiac Catheterization, Cardiac Surgery, Coronary Stent, Hysterectomy-Total, Pacemaker, Tubal Ligation <Mirtha Souza 03/18/21 09:06> Amputation: No <Mirtha Souza - 03/18/21 09:06> Fractures: No <Mirtha Souza 03/18/21 09:06> - *Social History Smoking Status: Former smoker <Mirtha Souza 03/18/21 09:06> # Packs/Day (cigarettes): 1 <Mirtha Souza 03/18/21 09:06> Alcohol Intake: never <Mirtha Souza 03/18/21 09:06> Alcohol Intake Frequency:: other <Mirtha Souza 03/18/21 09:06> Substance Use Type: denies use <Mirtha Souza 03/18/21 09:06> *Occupational Status:: retired <HarleyMirtha 03/18/21 09:06> Housing: house <HarleyMirtha 03/18/21 09:06> Household Members: spouse <Mirtha Souza 03/18/21 09:06> *Travel in the last 8 weeks: None <KyleguzmanMirtha 03/18/21 09:06> Family Hx:: No significant family history <Mirtha Souza 03/18/21 09:06> Review of Systems - Constitutional Reports fatigue, Reports weakness, Denies fever(s) <KyleguzmanMirtha 03/18/21 09:06> - Eyes Denies blurry vision, Denies double vision <KyleguzmanMirtha 03/18/21 09:06> - ENT Denies nasal congestion, Denies sore throat <KyleguzmanMirtha 03/18/21 09:06> - *Cardiovascular Reports shortness of breath, Reports leg swelling, Denies chest pain <KyleguzmanMirtha 03/18/21 09:06> - *Respiratory Reports cough, Reports shortness of breath <KyleguzmanMirtha 03/18/21 09:06> - *Gastrointestinal Denies abdominal pain, Denies loose stools, Denies nausea, Denies vomiting <KyleguzmanMirtha 03/18/21 09:06> - *Genitourinary Denies difficulty urinating, Denies painful urination <HarleyMirtha 03/18/21 09:06> - *Musculoskeletal Denies joint pain <HarleyMirtha 03/18/21 09:06> - *Neurologic Reports weakness, Denies headache(s), Denies dizziness <Mirtha Souza - 03/18/21 09:06> Meds Home Medications Medication Instructions Recorded Confirmed Type Amlodipine Besylate [Norvasc 10mg 10 mg PO DAILY 05/18/18 03/17/21 History tablet] Aspirin [A
--- NOTE | 2021-03-18 09:59 | HMH.PHAINT ---
MEDICATION RECONCILIATION COMPLETED ON PATIENT USING EXTERNAL FILL HISTORY FROM PHARMACY. -ARMIN QUINN, TROYD
[2021-03-18 11:15] LABS: POC Glucose,Bedside 99 (70-110)
[2021-03-18 11:15] LABS: POC Glucose,Bedside 178 (70-110)
[2021-03-18 11:15] LABS: POC Glucose,Bedside 101 (70-110)
--- NOTE | 2021-03-18 12:22 | PC.NURSE ---
Pt taken to [facility] via w/c and [facility] staff.
--- NOTE | 2021-03-18 13:35 | PC.NURSE ---
Pt noted to have a more loose non-productive cough this afternoon. Lungs remain wheezy/rhonchi scattered, bilat, throughout. Incentive Spirometer given and usage / benefits explained. Verbalized understanding. Return demonstration noted. Also informed pt that if she were to have a bm that we need to collect a specimen to send to lab. Verbalized understanding.
[2021-03-18 17:16] LABS: POC Glucose,Bedside 246 (70-110)
--- NOTE | 2021-03-18 19:24 | PC.NURSE ---
report given to alpa HERNANDEZ
[2021-03-19] VITALS (9 sets, daily range): BP systolic 122–167; BP diastolic 56–98; PULSE 50–71; RESP 16–22; TEMP 36.3–36.6; O2SAT 95–97
[2021-03-19 02:12] LABS: POC Glucose,Bedside 268 (70-110)
[2021-03-19 06:32] LABS: Chloride 106 mmol/L (98-107)
[2021-03-19 06:34] LABS: Potassium 4.8 mmoL/L (3.5-5.1); Sodium 140 mmol/L (136-145)
[2021-03-19 06:35] LABS: Basophils % 0.4 % (0.1-2.0); Eosinophils # 0.2 K/mm3 (0.0-0.4); Eosinophils % 3.1 % (0.1-12.0); Hematocrit 29.8 % (37.0-47.0); Hemoglobin 9.1 g/dL (12.2-16.2); Lymphocytes # 0.8 K/mm3 (0.7-4.5); Lymphocytes % 14.1 % (10-50); Mean Corpuscular HGB Conc 30.6 g/dL (31.8-35.4); Mean Corpuscular Hemoglobin 29.2 pg (27.0-31.2); Mean Corpuscular Volume 95.4 fl (81-99); Mean Platelet Volume 8.8 fl (7.4-10.4); Monocytes # 0.4 K/mm3 (0.1-1.0); Monocytes % 7.8 % (1.7-9.3); Neutrophils # 4.1 K/mm3 (1.8-7.8); Neutrophils % 74.6 % (37.0-80.0); Platelet Count 270 K/mm3 (142-424); Red Blood Count 3.12 M/mm3 (4.20-5.40); Red Cell Distribution Width 14.9 % (11.5-17.5); White Blood Count 5.5 K/mm3 (4.8-10.8)
[2021-03-19 06:36] LABS: Anion Gap 10.8 mEq/L (5-15); Blood Urea Nitrogen 40 mg/dl (7-17); Calcium 8.5 mg/dl (8.4-10.2); Carbon Dioxide 28 mmol/L (22.0-30.0); Creatinine Clearance Estimated 20 mL/min (50-200); Estimated Glomerular Filt Rate 24 ml/min (>60); GFR (African American) 29 ML/MIN (>60); Glucose 181 mg/dl (74-100)
[2021-03-19 07:47] LABS: POC Glucose,Bedside 209 (70-110)
--- NOTE | 2021-03-19 08:26 | PC.NURSE ---
Pt. has not c/o n/v/d, pain or dizziness this shift. Some c/o soa with activity. Ambulates to chair x1 assist.
--- NOTE | 2021-03-19 09:40 | HMH.ACPN2 ---
Internal Medicine - PN: Subj *Date: 03/19/21 *Time: 09:40 Interval history: Patient with no new complaints today, still feels weak, breathing has improved a little. She has had a lot of urine output. Exam Vital signs and Labs for Last 24 Hours: Temp Pulse Resp BP Pulse Ox 97.9 F 69 20 122/98 H 95 03/19/21 07:57 03/19/21 07:57 03/19/21 07:57 03/19/21 07:57 03/19/21 07:57 Laboratory Results - last 24 hr 03/18/21 02:40: POC Glucose 99 03/18/21 05:21: POC Glucose 101 03/18/21 10:57: POC Glucose 178 H 03/18/21 17:08: POC Glucose 246 H 03/18/21 20:44: POC Glucose 268 H 03/19/21 06:06: WBC 5.5, RBC 3.12 L, Hgb 9.1 L, Hct 29.8 L, MCV 95.4, MCH 29.2, MCHC 30.6 L, RDW 14.9, Plt Count 270, MPV 8.8, Neut % (Auto) 74.6, Lymph % (Auto) 14.1, [place] % (Auto) 7.8, Eos % (Auto) 3.1, Baso % (Auto) 0.4, Neut # (Auto) 4.1, Lymph # (Auto) 0.8, [place] # (Auto) 0.4, Eos # (Auto) 0.2, Baso # (Auto) 0.0 03/19/21 06:06: Sodium 140, Potassium 4.8, Chloride 106, Carbon Dioxide 28, Anion Gap 10.8, BUN 40 H, Creatinine 2.00 H, Estimated Creat Clear 20, Estimated GFR 24 L, Est GFR ( Amer) 29 L, Glucose 181 H, Calcium 8.5 03/19/21 07:23: POC Glucose 209 H Vital Signs - 24 hr 03/18/21 10:00 03/18/21 12:00 03/18/21 15:24 Temperature 97.9 F Pulse Rate 70 Pulse Rate [Right] 67 Respiratory Rate 20 Blood Pressure [Right Arm] 149/65 H 02 Sat by Pulse Oximetry 94 L 96 03/18/21 16:00 03/18/21 20:00 03/19/21 00:00 Temperature 97.9 F 97.9 F Pulse Rate 60 60 60 Pulse Rate [Right] 71 70 Respiratory Rate 18 18 Blood Pressure [Right Arm] 163/71 H 154/68 H 02 Sat by Pulse Oximetry 97 96 03/19/21 04:00 03/19/21 07:57 Temperature 97.8 F 97.9 F Pulse Rate 60 Pulse Rate [Right] 64 69 Respiratory Rate 16 20 Blood Pressure [Right Arm] 159/82 H 122/98 H 02 Sat by Pulse Oximetry 96 95 I & O for Last 24 hours: Intake & Output 03/16/21 03/17/21 03/18/21 03/19/21 23:59 23:59 23:59 23:59 Intake Total 610 / 610 960 / 960 Output Total 100 / 100 Balance 510 / 510 960 / 960 Weight 326 lb 2 oz 324 lb 0.002 oz - Constitutional no acute distress - *Routine Respiratory Exam Present: CTA bilaterally - *Routine Cardiovascular Exam Present: RRR - *Routine Extremities Exam Present: edema (1+ both lower legs) - *Routine Skin Exam Comments: chronic changes to both lower legs Assessment and Plan (1) Acute respiratory failure with hypoxia Status: Acute Category: Medical Code(s): J96.01 - Acute respiratory failure with hypoxia (2) History of NC (myocardial infarction) Status: Chronic Category: Medical Code(s): I25.2 - Old myocardial infarction (3) Obesity, morbid, BMI 50 or higher Status: Chronic Category: Medical Code(s): E66.01 - Morbid (severe) obesity due to excess calories (4) Chronic renal insufficiency, stage III (moderate) Status: Chronic Category: Medical Code(s): N18.3 - Chronic kidney disease, stage 3 (moderate) (5) Hyperlipidemia Status: Chronic Category: Medical Code(s): E78.5 - Hyperlipidemia, unspecified (6) Hypertension Status: Chronic Category: Medical Code(s): I10 - Essential (primary) hypertension (7) Hypothyroid Status: Chronic Qualifiers: Hypothyroidism type: acquired Qualified Code(s): E03.9 - Hypothyroidism, unspecified Category: Medical Code(s): E03.9 - Hypothyroidism, unspecified (8) Type 2 diabetes mellitus Status: Chronic Qualifiers: Diabetes mellitus buttermaker helper insulin use: with buttermaker helper use Diabetes mellitus complication status: with other specified complication Qualified Code(s): E11.69 - Type 2 diabetes mellitus with other specified complication; Z79.4 - exterminator helper termite (current) use of insulin Category: Medical Code(s): E11.9 - Type 2 diabetes mellitus without complications (9) Anemia Status: Acute Qualifiers: Anemia type: unspecified type Qualified Code(s): D64.9 - Anemia, u
[2021-03-19 11:11] LABS: POC Glucose,Bedside 250 (70-110)
[2021-03-19 17:12] LABS: POC Glucose,Bedside 217 (70-110)
--- NOTE | 2021-03-19 17:18 | PC.NURSE ---
pt has been up to chair t/o shift, has been weaned down to 1L this shift with O2 sats 95-96%, no complaints of pain or SOA
[2021-03-19 22:13] LABS: POC Glucose,Bedside 301 (70-110)
[2021-03-20] VITALS: BP 166/71; PULSE 60; PULSE 64; RESP 20; TEMP 36.5; O2SAT 91
[2021-03-20 04:00] VITALS: BP 176/80; PULSE 67; PULSE 70; RESP 21; TEMP 36.5; O2SAT 92
--- NOTE | 2021-03-20 04:29 | PC.NURSE ---
A&OX4. PT HAS HAD NO C/O THUS FAR THIS SHIFT. PT HAS BEEN WEANED TO RA, TOLERATING WELL. PT HAS STAYED UP IN HER CHAIR TONIGHT, RESTING COMFORTABLY. VSS WILL CONTINUE TO MONITOR.
[2021-03-20 05:00] VITALS: BMI 57.7
[2021-03-20 07:39] LABS: Chloride 107 mmol/L (98-107)
[2021-03-20 07:40] LABS: Basophils % 0.4 % (0.1-2.0); Eosinophils # 0.1 K/mm3 (0.0-0.4); Eosinophils % 2.4 % (0.1-12.0); Hemoglobin 9.2 g/dL (12.2-16.2); Lymphocytes # 0.7 K/mm3 (0.7-4.5); Lymphocytes % 11.1 % (10-50); Mean Corpuscular HGB Conc 30.6 g/dL (31.8-35.4); Mean Corpuscular Hemoglobin 28.9 pg (27.0-31.2); Mean Corpuscular Volume 94.5 fl (81-99); Monocytes # 0.3 K/mm3 (0.1-1.0); Monocytes % 5.5 % (1.7-9.3); Neutrophils # 4.9 K/mm3 (1.8-7.8); Neutrophils % 80.6 % (37.0-80.0); Platelet Count 265 K/mm3 (142-424); Potassium 4.8 mmoL/L (3.5-5.1); Red Blood Count 3.17 M/mm3 (4.20-5.40); Red Cell Distribution Width 14.7 % (11.5-17.5); Sodium 141 mmol/L (136-145)
[2021-03-20 07:43] LABS: Anion Gap 10.8 mEq/L (5-15); Blood Urea Nitrogen 43 mg/dl (7-17); Calcium 8.6 mg/dl (8.4-10.2); Carbon Dioxide 28 mmol/L (22.0-30.0); Creatinine Clearance Estimated 22 mL/min (50-200); Estimated Glomerular Filt Rate 28 ml/min (>60); GFR (African American) 33 ML/MIN (>60); Glucose 213 mg/dl (74-100)
[2021-03-20 08:00] VITALS: BP 169/73; PULSE 67; PULSE 70; RESP 22; TEMP 36.4; O2SAT 90
--- NOTE | 2021-03-20 08:15 | HMH.ACPN2 ---
Internal Medicine - PN: Subj *Date: 03/20/21 *Time: 08:15 Interval history: Patient with no new comaplints today, breathing has improved. Exam Vital signs and Labs for Last 24 Hours: Temp Pulse Resp BP Pulse Ox 97.7 F 67 21 176/80 H 92 L 03/20/21 04:00 03/20/21 04:00 03/20/21 04:00 03/20/21 04:00 03/20/21 04:00 Laboratory Results - last 24 hr 03/19/21 11:04: POC Glucose 250 H 03/19/21 16:29: POC Glucose 217 H 03/19/21 21:53: POC Glucose 301 H* 03/20/21 06:55: WBC 6.0, RBC 3.17 L, Hgb 9.2 L, Hct 30.0 L, MCV 94.5, MCH 28.9, MCHC 30.6 L, RDW 14.7, Plt Count 265, MPV 9.0, Neut % (Auto) 80.6 H, Lymph % (Auto) 11.1, [place] % (Auto) 5.5, Eos % (Auto) 2.4, Baso % (Auto) 0.4, Neut # (Auto) 4.9, Lymph # (Auto) 0.7, [place] # (Auto) 0.3, Eos # (Auto) 0.1, Baso # (Auto) 0.0 03/20/21 06:55: Sodium 141, Potassium 4.8, Chloride 107, Carbon Dioxide 28, Anion Gap 10.8, BUN 43 H, Creatinine 1.80 H, Estimated Creat Clear 22, Estimated GFR 28 L, Est GFR ( Amer) 33 L, Glucose 213 H, Calcium 8.6 Vital Signs - 24 hr 03/19/21 11:46 03/19/21 12:00 03/19/21 16:00 Temperature 97.8 F 97.4 F L Pulse Rate 50 L 70 Pulse Rate [Left Radial] 59 L 63 Respiratory Rate 22 20 Blood Pressure [Right Arm] 140/62 135/56 L 02 Sat by Pulse Oximetry 97 96 03/19/21 19:24 03/19/21 20:00 03/20/21 00:00 Temperature 97.8 F 97.7 F Pulse Rate 70 60 Pulse Rate [Left Radial] 71 64 Respiratory Rate 22 20 Blood Pressure [Right Arm] 167/81 H 166/71 H 02 Sat by Pulse Oximetry 95 91 L 03/20/21 04:00 Temperature 97.7 F Pulse Rate 70 Pulse Rate [Left Radial] 67 Respiratory Rate 21 Blood Pressure [Right Arm] 176/80 H 02 Sat by Pulse Oximetry 92 L I & O for Last 24 hours: Intake & Output 03/17/21 03/18/21 03/19/21 03/20/21 23:59 23:59 23:59 23:59 Intake Total 610 / 610 2520 / 2520 120 / 120 Output Total 100 / 100 Balance 510 / 510 2520 / 2520 120 / 120 Weight 326 lb 2 oz 324 lb 0.002 oz 326 lb 2 oz - Constitutional no acute distress - *Routine HEENT Exam Head: Present: normocephalic Eye: Present: EOMI, PERRL ENT: Present: mucous membranes moist - *Routine Neck Exam Present: supple. Absent: lymphadenopathy - *Routine Respiratory Exam Present: CTA bilaterally - *Routine Cardiovascular Exam Present: RRR - *Routine Abdominal Exam Present: soft, normoactive bowel sounds, obese. Absent: tenderness - *Routine Extremities Exam Present: edema (1+ bilat legs). Absent: cyanosis, clubbing - *Routine Skin Exam Present: warm, rash (chronic changes to both legs) - *Routine Neurological Exam Present: alert, oriented X3 Assessment and Plan (1) Acute respiratory failure with hypoxia Status: Acute Category: Medical Code(s): J96.01 - Acute respiratory failure with hypoxia (2) History of [place] (myocardial infarction) Status: Chronic Category: Medical Code(s): I25.2 - Old myocardial infarction (3) Obesity, morbid, BMI 50 or higher Status: Chronic Category: Medical Code(s): E66.01 - Morbid (severe) obesity due to excess calories (4) Chronic renal insufficiency, stage III (moderate) Status: Chronic Category: Medical Code(s): N18.3 - Chronic kidney disease, stage 3 (moderate) (5) Hyperlipidemia Status: Chronic Category: Medical Code(s): E78.5 - Hyperlipidemia, unspecified (6) Hypertension Status: Chronic Category: Medical Code(s): I10 - Essential (primary) hypertension (7) Hypothyroid Status: Chronic Qualifiers: Hypothyroidism type: acquired Qualified Code(s): E03.9 - Hypothyroidism, unspecified Category: Medical Code(s): E03.9 - Hypothyroidism, unspecified (8) Type 2 diabetes mellitus Status: Chronic Qualifiers: Diabetes mellitus senior care insulin use: with long term acute care registered nurse use Diabetes mellitus complication status: with other specified complication Qualified Code(s): E11.69 - Type 2 diabetes mellitus with other specified complication; Z79.4
[2021-03-20 12:00] VITALS: BP 150/66; PULSE 60; RESP 20; TEMP 36.6; O2SAT 90
[2021-03-20 16:00] VITALS: BP 155/66; PULSE 63; PULSE 70; RESP 18; TEMP 36.4; O2SAT 92
--- NOTE | 2021-03-20 18:33 | PC.NURSE ---
pt has been up to chair t/o shift, remains on room air with O2 sats 90% or above, has not complained of SOA, did complain of a headache this shift and was treated per MAR
[2021-03-20 20:00] VITALS: BP 172/60; PULSE 70; RESP 17; TEMP 36.3; O2SAT 90
[2021-03-20 21:39] LABS: POC Glucose,Bedside 272 (70-110)
[2021-03-21] VITALS (9 sets, daily range): BP systolic 160–177; BP diastolic 63–79; PULSE 50–70; RESP 18–22; TEMP 36.4–37; O2SAT 91–97; BMI 57.7
[2021-03-21 01:01] LABS: POC Glucose,Bedside 304 (70-110)
[2021-03-21 01:01] LABS: POC Glucose,Bedside 228 (70-110)
[2021-03-21 01:01] LABS: POC Glucose,Bedside 270 (70-110)
--- NOTE | 2021-03-21 04:31 | PC.NURSE ---
Pt is A/O x4. Pt slept well this shift. C/O of SOA x1 this shift, checked O2 and pt remained 90%, applied 2L NC and pt stated she felt better. O2 has remained >90%. Pt is using BSC to void clear, yellow, urine. No BM this shift. Pt denies any pain, N/V. Call light within reach, will continue to monitor.
--- NOTE | 2021-03-21 08:39 | HMH.ACPN2 ---
Internal Medicine - PN: Subj *Date: 03/21/21 *Time: 08:39 Interval history: Patient was able to wean down to room air yesterday but had to be put back on O2 last night due to hypoxia and not feeling well. She states she still feels weak. Exam Vital signs and Labs for Last 24 Hours: Temp Pulse Resp BP Pulse Ox 98.6 F 65 20 169/79 H 96 03/21/21 08:00 03/21/21 08:00 03/21/21 08:00 03/21/21 08:00 03/21/21 08:00 Laboratory Results - last 24 hr 03/20/21 05:02: POC Glucose 228 H 03/20/21 11:10: POC Glucose 304 H* 03/20/21 16:45: POC Glucose 270 H 03/20/21 19:49: POC Glucose 272 H Vital Signs - 24 hr 03/20/21 12:00 03/20/21 16:00 03/20/21 20:00 Temperature 97.9 F 97.5 F L 97.3 F L Pulse Rate 60 70 70 Pulse Rate [Left Radial] 60 63 70 Respiratory Rate 20 18 17 Blood Pressure [Right Arm] 150/66 H 155/66 H 172/60 H 02 Sat by Pulse Oximetry 90 L 92 L 90 L 03/21/21 00:00 03/21/21 04:00 03/21/21 08:00 Temperature 97.6 F 98.6 F Pulse Rate 50 L 60 Pulse Rate [Left Radial] 64 63 65 Respiratory Rate 18 18 20 Blood Pressure [Right Arm] 177/63 H 160/69 H 169/79 H 02 Sat by Pulse Oximetry 91 L 94 L 96 I & O for Last 24 hours: Intake & Output 03/18/21 03/19/21 03/20/21 03/21/21 23:59 23:59 23:59 23:59 Intake Total 610 / 610 2520 / 2520 1560 / 1800 240 / 240 Output Total 100 / 100 600 / 600 Balance 510 / 510 2520 / 2520 1560 / 1200 -360 / -360 Weight 324 lb 0.002 oz 326 lb 2 oz 326 lb - Constitutional no acute distress (sitting in a chair) - *Routine Cardiovascular Exam Present: RRR Assessment and Plan (1) Acute respiratory failure with hypoxia Status: Acute Category: Medical Code(s): J96.01 - Acute respiratory failure with hypoxia (2) History of [place] (myocardial infarction) Status: Chronic Category: Medical Code(s): I25.2 - Old myocardial infarction (3) Obesity, morbid, BMI 50 or higher Status: Chronic Category: Medical Code(s): E66.01 - Morbid (severe) obesity due to excess calories (4) Chronic renal insufficiency, stage III (moderate) Status: Chronic Category: Medical Code(s): N18.3 - Chronic kidney disease, stage 3 (moderate) (5) Hyperlipidemia Status: Chronic Category: Medical Code(s): E78.5 - Hyperlipidemia, unspecified (6) Hypertension Status: Chronic Category: Medical Code(s): I10 - Essential (primary) hypertension (7) Hypothyroid Status: Chronic Qualifiers: Hypothyroidism type: acquired Qualified Code(s): E03.9 - Hypothyroidism, unspecified Category: Medical Code(s): E03.9 - Hypothyroidism, unspecified (8) Type 2 diabetes mellitus Status: Chronic Qualifiers: Diabetes mellitus regional intermodal truck driver insulin use: with senior living use Diabetes mellitus complication status: with other specified complication Qualified Code(s): E11.69 - Type 2 diabetes mellitus with other specified complication; Z79.4 - superintendent marine oil terminal (current) use of insulin Category: Medical Code(s): E11.9 - Type 2 diabetes mellitus without complications (9) Anemia Status: Acute Qualifiers: Anemia type: unspecified type Qualified Code(s): D64.9 - Anemia, unspecified Category: Medical Code(s): D64.9 - Anemia, unspecified (10) Grade I diastolic dysfunction Status: Acute Category: Medical Code(s): I51.9 - Heart disease, unspecified (11) Generalized weakness Status: Acute Category: Medical Code(s): R53.1 - Weakness - Assessment and plan all Dx Assessment and Plan for all problems:: Repeat CXR today, PT evaluation. Resume scheduled Lisinopril.
--- NOTE | 2021-03-21 08:42 | XR_ITS ---
PROCEDURE: XR CHEST PORTABLE CLINICAL HISTORY: Shortness of breath COMPARISON: CR XR CHEST 2V from 03/09/2021 CR XR CHEST PORTABLE from 03/15/2021 CR XR CHEST PORTABLE from 03/17/2021 FINDINGS: There is cardiomegaly without failure. No definite lobar consolidation or collapse. There is some increased density of the right lung compared to the left which may be due to technical factors. Upright PA and lateral chest may confirm. No acute bony abnormalities. IMPRESSION: Cardiomegaly. No definite acute finding Dictated by: Saúl Pacheco MD 03/21/2021 09:54 Saúl Pacheco MD in [place] 03/21/2021 09:54
--- NOTE | 2021-03-21 10:59 | HMH.PTEV ---
Physical Therapy Evaluation Rehab PT IP Evaluation Start: 03/21/21 08:42 Freq: ONCE Status: Active Protocol: Document 03/21/21 10:00 PHORNE (Rec: 03/21/21 10:59 PHORNE [id number]) Subjective/History History History 75 yowf adm to [facility] with acute resp failure. She reports she has a ramp to enter the home and assistance as needed. Prior to adm she was ambulating limited household distances with rolator. Subjective Subjective Pt reports increased SOA with any activity. Rehab PT IP Eval Objective Appearance Patient Behavior Appropriate Patient Orientation Person,Place,Time Difficulty following instructions none Speech Pattern Clear Ambulation Patient Able to Ambulate Yes Ambulation Observation IP General Gait Pattern Observation Wide Based Gait,Shuffling Step Ambulation Distance (feet) 5 Ambulation Assistive Device Rolling Walker Ambulation Ability Minimal x 1 (25% assist) Balance Ability to Arise Able, uses arms to help Sitting Balance Steady, safe Standing Balance Steady, wide stance Dynamic Sitting Balance Ability Good Dynamic Standing Balance Ability Fair Transfers Chair Transfer Ability Minimal x 1 (25% assist) Sit to Stand Bed Transfer Ability Minimal x 1 (25% assist) Sit to Stand Chair Transfer Ability Minimal x 1 (25% assist) ROM All Extremities PT ROM Status WFL MMT All Extremities PT MMT WFL Rehab PT IP prob,goals,plan Problems Date of Evaluation: 03/21/21 PT IP Problems Bed Mobility,Transfers,Gait Rehab Potential Rehab Potential Good Plan PT Intervention Plan Bed Mobility,Transfers,Gait, Therapeutic Exercise PT Plan Frequency BID Discharge Goals Bed Transfer Ability Contact Guard/Hand Hold Sit to Stand Chair Transfer Ability Contact Guard/Hand Hold Ambulation Assistive Device Rolling Walker Ambulation Distance (feet) 20 Discharge Plan PT Discharge Plan Pt is most appropriate for rehab placement at this time due to significant decrease in endurance and high risk for falls. G -code Required No Eval Complexity Eval Charge Codes 43839 - Moderate Complexity PHYSICIAN CERTIFICATION: I certify the specified therapy services for Kiki Guerra are required, authorize
[2021-03-21 11:14] LABS: POC Glucose,Bedside 226 (70-110)
[2021-03-21 12:29] LABS: POC Glucose,Bedside 243 (70-110)
--- NOTE | 2021-03-21 13:47 | DIET.NUTRFU ---
Addendum entered by Jennifer Tapia 03/23/21 12:23: PO intakes 75%, BG moderate-high and has increased t/o stay- avg. 300 past 24h, weight recorded to be up 18# past 24h- suspect inaccuracy as it has been recorded to be unchanged for 5d prior. Pt reports no nutritional concerns, continuing to monitor. Original Note: PO intakes 75%, BG moderate-high- avg. 250, weight stable, normal bowel function. No nutritional concerns at this time. She has received diet edu for DM, CKD, and weight loss.
--- NOTE | 2021-03-21 14:44 | SW/DCPLANNER ---
Addendum entered by Sharron Moreira 03/24/21 11:01: RECEIVED A CALL FROM HELENE GONGORA AND PATIENT DOES NOT HAVE ANY OUT OF POCKET WITH HER [facility]. SHE IS DISCHARGING THERE TODAY AND WILL GO VIA EMS... Addendum entered by Sharron Moreira 03/24/21 06:58: RECEIVED A MESSAGE LAST EVENING FROM HELENE GONGORA STATING THEY GOT AN AUTHORIZATION AND CAN ACCEPT HER TODAY ()... Addendum entered by Sharron Moreira 03/22/21 06:35: RECEIVED A VOICE MESSAGE FROM HELENE GONGORA THEY STARTED THE PRECERT ON THIS PATIENT... I SENT THE OT EVAL THIS MORNING FOR THEM TO SEND TO THE INSURANCE COMPANY SINCE IT HAD NOT BEEN DONE YESTERDAY...WAITING TO HEAR TO WHETHER THEY WILL APPROVE HER OR NOT...IF SO SHE MAY BE ABLE TO DISCHARGE LATER TODAY.. Original Note: RECEIVED REFERRAL FOR SHORT TERM REHAB PLACEMENT FOR THIS PATIENT: SHE NEEDS PHYSICAL THERAPY, LASIX AND CLOSE MONITORING OF HER LABS... I WENT TO SEE PATIENT AND EXPLAINED TO HER THAT SHE HAS A MANAGED CARE INSURANCE AND THIS WILL REQUIRE INSURANCE APPROVAL AND WILL NEED TO FIND SOME FACILITY IN [place].. SHE SAID THE ONLY WAY SHE WILL AGREE TO GO IS IF THEY DON'T TAKE HER CHECK. I TOLD HER SHE COULD HAVE SOME OUT OF POCKET EXPENSE BUT WE HAD TO FIRST FIND A FACILITY IN [place] TO RUN HER INSURANCE. I DID CALL [facility] AND THEY ARE NOT IN NETWORK AND I HAVE SENT IT TO [facility] WAITING ON A RETURN CALL.. [place] DOES NOT HAVE A CONTRACT. IF [facility] ISN'T IN NETWORK WE WOULD NEED TO LOOK OUTSIDE THE COUNTY. THIS IS A DIFFICULT INSURANCE TO FIND PLACEMENT WITH... WILL MAKE SOME CONTACTS WITH OUT OF COUNTY FACILITIES...DISPOSITION COULD BE WHEN A BED IS FOUND..
--- NOTE | 2021-03-21 16:41 | HMH.OTEV ---
OT Inpatient Evaluation Rehab OT IP Evaluation Start: 03/21/21 14:28 Freq: ONCE Status: Complete Protocol: Document 03/21/21 16:26 ELVIAELIER (Rec: 03/21/21 16:41 LETICIA [id number]) Rehab OT IP Assessment Subjective History *Admission Date: 03/17/21 *Chief complaint: shortness of breath *History of present illness: Ms. Guerra is a 75-year-old female with a history of hypertension, hyperlipidemia, type 2 diabetes, and history of an VT. She states she has been feeling poorly for the past few weeks. She was seen a week ago at the urgent treatment center and diagnosed with bronchitis. She had a negative Covid test at that time. She was prescribed antibiotics and sent home. She states she began feeling worse. Her shortness of breath was extremely worse when she was up ambulating around in her home. She has no supplemental oxygen at home . In the emergency room, her oxygen sats were 93 to 95% on room air and her renal functions were elevated. Her chest x-ray showed nothing acute. When nursing got her up to ambulate, her oxygen saturations dropped into the 80s. She was therefore admitted for further evaluation and treatment. An echo was ordered and she was given Lasix due to an elevated BNP of 1500. She had another Covid swab done in the emergency room and it was negative as well. 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 [facility] History Medical History: Reports:: Coronary Artery Disease, Diabetes Mellitu
--- NOTE | 2021-03-21 17:31 | PC.NURSE ---
Pt is alert and oriented. She has been up to the chair all shift. O2 was removed and Oxygen sat remained > 90% but patient reported feeling SOB so oxygen was replaced at 1.5L NC. Appetite has been good. No complaints other being SOB after removing O2.
[2021-03-21 19:45] LABS: POC Glucose,Bedside 280 (70-110)
[2021-03-21 22:19] LABS: POC Glucose,Bedside 248 (70-110)
[2021-03-22] VITALS (7 sets, daily range): BP systolic 136–192; BP diastolic 64–88; PULSE 50–89; RESP 16–21; TEMP 36.6–37.2; O2SAT 90–96; BMI 57.7
[2021-03-22 07:56] LABS: POC Glucose,Bedside 228 (70-110)
[2021-03-22 09:11] LABS: Basophils % 0.5 % (0.1-2.0); Eosinophils # 0.2 K/mm3 (0.0-0.4); Hemoglobin 9.5 g/dL (12.2-16.2); Lymphocytes # 0.6 K/mm3 (0.7-4.5); Lymphocytes % 13.3 % (10-50); Mean Corpuscular HGB Conc 30.6 g/dL (31.8-35.4); Mean Corpuscular Hemoglobin 29.1 pg (27.0-31.2); Mean Corpuscular Volume 95.3 fl (81-99); Mean Platelet Volume 9.2 fl (7.4-10.4); Monocytes # 0.3 K/mm3 (0.1-1.0); Monocytes % 5.8 % (1.7-9.3); Neutrophils # 3.6 K/mm3 (1.8-7.8); Neutrophils % 76.4 % (37.0-80.0); Platelet Count 245 K/mm3 (142-424); Red Blood Count 3.25 M/mm3 (4.20-5.40); Red Cell Distribution Width 14.8 % (11.5-17.5); White Blood Count 4.8 K/mm3 (4.8-10.8)
[2021-03-22 09:12] LABS: Chloride 103 mmol/L (98-107); Sodium 139 mmol/L (136-145)
[2021-03-22 09:15] LABS: Blood Urea Nitrogen 49 mg/dl (7-17); Calcium 8.8 mg/dl (8.4-10.2); Carbon Dioxide 29 mmol/L (22.0-30.0); Creatinine Clearance Estimated 22 mL/min (50-200); Estimated Glomerular Filt Rate 28 ml/min (>60); GFR (African American) 33 ML/MIN (>60); Glucose 273 mg/dl (74-100)
--- NOTE | 2021-03-22 09:19 | HMH.ACPN2 ---
Internal Medicine - PN: Subj *Date: 03/22/21 *Time: 09:19 Interval history: Pt with no new complaints, had some wheezing this morning. Exam Vital signs and Labs for Last 24 Hours: Temp Pulse Resp BP Pulse Ox 97.8 F 74 19 136/64 94 L 03/22/21 04:00 03/22/21 04:00 03/22/21 04:00 03/22/21 04:00 03/22/21 04:00 Laboratory Results - last 24 hr 03/21/21 05:31: POC Glucose 226 H 03/21/21 12:05: POC Glucose 243 H 03/21/21 16:22: POC Glucose 280 H 03/21/21 21:57: POC Glucose 248 H 03/22/21 07:07: POC Glucose 228 H 03/22/21 08:50: WBC 4.8, RBC 3.25 L, Hgb 9.5 L, Hct 31.0 L, MCV 95.3, MCH 29.1, MCHC 30.6 L, RDW 14.8, Plt Count 245, MPV 9.2, Neut % (Auto) 76.4, Lymph % (Auto) 13.3, [place] % (Auto) 5.8, Eos % (Auto) 4.0, Baso % (Auto) 0.5, Neut # (Auto) 3.6, Lymph # (Auto) 0.6 L, [place] # (Auto) 0.3, Eos # (Auto) 0.2, Baso # (Auto) 0.0 03/22/21 08:50: Sodium 139, Potassium 5.0, Chloride 103, Carbon Dioxide 29, Anion Gap 12.0, BUN 49 H, Creatinine 1.80 H, Estimated Creat Clear 22, Estimated GFR 28 L, Est GFR ( Amer) 33 L, Glucose 273 H, Calcium 8.8 Vital Signs - 24 hr 03/21/21 11:50 03/21/21 12:00 03/21/21 15:57 Temperature 98.5 F 98.5 F Pulse Rate 60 Pulse Rate [Left Radial] 61 64 Respiratory Rate 22 22 Blood Pressure [Right Arm] 166/76 H 173/69 H 02 Sat by Pulse Oximetry 97 96 03/21/21 16:00 03/21/21 19:50 03/22/21 02:45 Temperature 98.0 F Pulse Rate 70 Pulse Rate [Left Radial] 62 Respiratory Rate 19 Blood Pressure [Right Arm] 169/73 H 02 Sat by Pulse Oximetry 95 95 03/22/21 04:00 Temperature 97.8 F Pulse Rate Pulse Rate [Left Radial] 74 Respiratory Rate 19 Blood Pressure [Right Arm] 136/64 02 Sat by Pulse Oximetry 94 L I & O for Last 24 hours: Intake & Output 03/19/21 03/20/21 03/21/21 03/22/21 23:59 23:59 23:59 23:59 Intake Total 2520 / 2520 1560 / 1800 1560 / 1560 Output Total 600 / 600 Balance 2520 / 2520 1560 / 1200 960 / 960 Weight 326 lb 2 oz 326 lb 326 lb 2 oz - Constitutional no acute distress - *Routine HEENT Exam Head: Present: normocephalic Eye: Present: EOMI, PERRL ENT: Present: mucous membranes moist - *Routine Neck Exam Present: supple. Absent: lymphadenopathy - *Routine Respiratory Exam Present: wheezes (few, mainly expiratory) - *Routine Cardiovascular Exam Present: RRR - *Routine Abdominal Exam Present: soft, normoactive bowel sounds, obese. Absent: tenderness - *Routine Extremities Exam Present: edema (both legs). Absent: cyanosis, clubbing - *Routine Skin Exam Present: warm, rash (chronic changes to both legs) - *Routine Neurological Exam Present: alert, oriented X3 Assessment and Plan (1) Acute respiratory failure with hypoxia Status: Acute Category: Medical Code(s): J96.01 - Acute respiratory failure with hypoxia (2) History of [place] (myocardial infarction) Status: Chronic Category: Medical Code(s): I25.2 - Old myocardial infarction (3) Obesity, morbid, BMI 50 or higher Status: Chronic Category: Medical Code(s): E66.01 - Morbid (severe) obesity due to excess calories (4) Chronic renal insufficiency, stage III (moderate) Status: Chronic Category: Medical Code(s): N18.3 - Chronic kidney disease, stage 3 (moderate) (5) Hyperlipidemia Status: Chronic Category: Medical Code(s): E78.5 - Hyperlipidemia, unspecified (6) Hypertension Status: Chronic Category: Medical Code(s): I10 - Essential (primary) hypertension (7) Hypothyroid Status: Chronic Qualifiers: Hypothyroidism type: acquired Qualified Code(s): E03.9 - Hypothyroidism, unspecified Category: Medical Code(s): E03.9 - Hypothyroidism, unspecified (8) Type 2 diabetes mellitus Status: Chronic Qualifiers: Diabetes mellitus alf insulin use: with alf use Diabetes mellitus complication status: with other specified complication Qualified Code(s): E11.69 - Type 2 diabetes mellitu
--- NOTE | 2021-03-22 09:21 | PC.NURSE ---
Late entry: pt. has not c/o n/v/d, pain, dizziness or soa this shift. Pt. requests o2 and intermittently wore 1.5l nc with o2 sat 95-97%; 90-92% on ra.
[2021-03-22 11:44] LABS: Occult Blood,Stool Negative (Negative)
[2021-03-22 12:09] LABS: POC Glucose,Bedside 309 (70-110)
[2021-03-22 16:57] LABS: POC Glucose,Bedside 351 (70-110)
[2021-03-23] VITALS (19 sets, daily range): BP systolic 128–167; BP diastolic 66–77; PULSE 57–70; RESP 15–22; TEMP 34–36.8; O2SAT 88–95; BMI 61.2
[2021-03-23 00:47] LABS: POC Glucose,Bedside 350 (70-110)
--- NOTE | 2021-03-23 05:01 | PC.NURSE ---
Pt remained in chair most of night. Declined to get in bed because of soa while in bed. Pt has been incontinent of urine t/o shift. Purewick in place. Pt has c/o discomfort to LLE. Edema was noted to BLE. More to LLE. Blisters noted to BLE. Pt noted to be hypothermic this AM. Hypothermic blanket and additional blankets placed on pt. Pt is currently in bed. Will continue to monitor.
--- NOTE | 2021-03-23 08:13 | HMH.ACPN2 ---
Internal Medicine - PN: Subj *Date: 03/23/21 *Time: 08:13 Interval history: Patient with no new complaints today. She had an episode of hypothermia overnight but states she did not feel bad during the episode. Exam Vital signs and Labs for Last 24 Hours: Temp Pulse Resp BP Pulse Ox 98.2 F 65 18 167/77 H 94 L 03/23/21 07:35 03/23/21 07:35 03/23/21 07:35 03/23/21 07:35 03/23/21 07:35 Laboratory Results - last 24 hr 03/18/21 11:00: Stool Occult Blood Negative 03/22/21 08:50: WBC 4.8, RBC 3.25 L, Hgb 9.5 L, Hct 31.0 L, MCV 95.3, MCH 29.1, MCHC 30.6 L, RDW 14.8, Plt Count 245, MPV 9.2, Neut % (Auto) 76.4, Lymph % (Auto) 13.3, [place] % (Auto) 5.8, Eos % (Auto) 4.0, Baso % (Auto) 0.5, Neut # (Auto) 3.6, Lymph # (Auto) 0.6 L, [place] # (Auto) 0.3, Eos # (Auto) 0.2, Baso # (Auto) 0.0 03/22/21 08:50: Sodium 139, Potassium 5.0, Chloride 103, Carbon Dioxide 29, Anion Gap 12.0, BUN 49 H, Creatinine 1.80 H, Estimated Creat Clear 22, Estimated GFR 28 L, Est GFR ( Amer) 33 L, Glucose 273 H, Calcium 8.8 03/22/21 11:30: POC Glucose 309 H* 03/22/21 16:49: POC Glucose 351 H* 03/22/21 21:22: POC Glucose 350 H* Vital Signs - 24 hr 03/22/21 12:00 03/22/21 16:00 03/22/21 20:00 Temperature 98.9 F Pulse Rate 59 L 60 50 L Pulse Rate [Left Radial] 60 89 61 Respiratory Rate 18 18 16 Blood Pressure [Right Arm] 161/88 H 188/88 H 151/72 H 02 Sat by Pulse Oximetry 96 94 L 95 03/23/21 00:00 03/23/21 02:58 03/23/21 03:15 Temperature 93.2 F L 93.2 F L Pulse Rate 60 Pulse Rate [Left Radial] 57 L Respiratory Rate 16 Blood Pressure [Right Arm] 162/67 H 02 Sat by Pulse Oximetry 93 L 03/23/21 03:30 03/23/21 03:45 03/23/21 04:00 Temperature 93.5 F L 93.9 F L 93.9 F L Pulse Rate 60 Pulse Rate [Left Radial] Respiratory Rate Blood Pressure [Right Arm] 02 Sat by Pulse Oximetry 03/23/21 04:15 03/23/21 04:30 03/23/21 04:45 Temperature 93.9 F L 94.2 F L 94.5 F L Pulse Rate Pulse Rate [Left Radial] Respiratory Rate Blood Pressure [Right Arm] 02 Sat by Pulse Oximetry 03/23/21 05:00 03/23/21 06:00 03/23/21 07:35 Temperature 94.7 F L 95.2 F L 98.2 F Pulse Rate Pulse Rate [Left Radial] 69 65 Respiratory Rate 15 18 Blood Pressure [Right Arm] 156/72 H 167/77 H 02 Sat by Pulse Oximetry 95 94 L I & O for Last 24 hours: Intake & Output 03/20/21 03/21/21 03/22/21 03/23/21 23:59 23:59 23:59 23:59 Intake Total 1560 / 1800 1560 / 1560 600 / 600 480 / 480 Output Total 600 / 600 0 / 0 Balance 1560 / 1200 960 / 960 600 / 600 480 / 480 Weight 326 lb 2 oz 326 lb 326 lb 2 oz 345 lb 4 oz - Constitutional no acute distress - *Routine HEENT Exam Head: Present: normocephalic Eye: Present: EOMI, PERRL ENT: Present: mucous membranes moist - *Routine Neck Exam Present: supple. Absent: lymphadenopathy - *Routine Respiratory Exam Present: wheezes (bilateral) - *Routine Cardiovascular Exam Present: RRR - *Routine Abdominal Exam Present: soft, normoactive bowel sounds, obese. Absent: tenderness - *Routine Extremities Exam Present: edema (both legs). Absent: cyanosis, clubbing - *Routine Skin Exam Present: warm, rash (chronic changes, both legs) - *Routine Neurological Exam Present: alert, oriented X3 Assessment and Plan (1) Acute respiratory failure with hypoxia Status: Acute Category: Medical Code(s): J96.01 - Acute respiratory failure with hypoxia (2) History of [place] (myocardial infarction) Status: Chronic Category: Medical Code(s): I25.2 - Old myocardial infarction (3) Obesity, morbid, BMI 50 or higher Status: Chronic Category: Medical Code(s): E66.01 - Morbid (severe) obesity due to excess calories (4) Chronic renal insufficiency, stage III (moderate) Status: Chronic Category: Medical Code(s): N18.3 - Chronic kidney disease, stage 3 (moderate) (5) Hyperlipidemia Status: Chronic Category: Medical Code(s): E78.5 - Hyp
[2021-03-23 10:48] LABS: POC Glucose,Bedside 284 (70-110)
[2021-03-23 16:34] LABS: POC Glucose,Bedside 308 (70-110)
[2021-03-23 16:34] LABS: POC Glucose,Bedside 321 (70-110)
--- NOTE | 2021-03-23 17:09 | PC.NURSE ---
Pt alert and oriented x 4. RR even and unlabored currently. Remains on 2 L NC. VSS. Up to chair at this time and has been encouraged to use incentive spirometer. Scattered wheezes sonia throughout. Mx continues.
[2021-03-23 21:23] LABS: POC Glucose,Bedside 301 (70-110)
[2021-03-24] VITALS: BP 159/64; PULSE 68; RESP 18; TEMP 36.6; O2SAT 96
[2021-03-24 00:40] VITALS: PULSE 60
[2021-03-24 04:00] VITALS: BP 147/74; PULSE 60; PULSE 61; RESP 18; TEMP 36.4; O2SAT 96
--- NOTE | 2021-03-24 04:12 | PC.NURSE ---
No acute changes noted. Pt c/o cough early in shift. Medication administered per sep. No additional complaints voiced. Pt remains on 2L O2 NC. VS have remained stable. Pt has remained up to chair this shift. Purewick in place. Will continue to monitor.
[2021-03-24 05:27] LABS: POC Glucose,Bedside 151 (70-110)
[2021-03-24 05:45] LABS: Basophils % 0.5 % (0.1-2.0); Eosinophils # 0.2 K/mm3 (0.0-0.4); Eosinophils % 3.2 % (0.1-12.0); Hematocrit 29.8 % (37.0-47.0); Hemoglobin 9.1 g/dL (12.2-16.2); Lymphocytes # 0.8 K/mm3 (0.7-4.5); Lymphocytes % 17.7 % (10-50); Mean Corpuscular HGB Conc 30.7 g/dL (31.8-35.4); Mean Corpuscular Hemoglobin 29.1 pg (27.0-31.2); Mean Corpuscular Volume 94.9 fl (81-99); Mean Platelet Volume 8.9 fl (7.4-10.4); Monocytes # 0.4 K/mm3 (0.1-1.0); Monocytes % 8.2 % (1.7-9.3); Neutrophils # 3.3 K/mm3 (1.8-7.8); Neutrophils % 70.4 % (37.0-80.0); Platelet Count 248 K/mm3 (142-424); Red Blood Count 3.14 M/mm3 (4.20-5.40); White Blood Count 4.6 K/mm3 (4.8-10.8)
[2021-03-24 05:58] LABS: Anion Gap 12.2 mEq/L (5-15); Blood Urea Nitrogen 56 mg/dl (7-17); Calcium 8.7 mg/dl (8.4-10.2); Carbon Dioxide 28 mmol/L (22.0-30.0); Chloride 104 mmol/L (98-107); Creatinine Clearance Estimated 23 mL/min (50-200); Estimated Glomerular Filt Rate 29 ml/min (>60); GFR (African American) 36 ML/MIN (>60); Glucose 163 mg/dl (74-100); Potassium 5.2 mmoL/L (3.5-5.1); Sodium 139 mmol/L (136-145)
[2021-03-24 08:00] VITALS: BP 154/72; PULSE 63; RESP 18; TEMP 36.8; O2SAT 96
--- NOTE | 2021-03-24 08:52 | HMH.ACPN2 ---
Internal Medicine - PN: Keena *Date: 03/24/21 *Time: 08:53 Interval history: Pt states she had a pretty good night last night. No new complaints. She has questions for care management about her rehab options. Exam Vital signs and Labs for Last 24 Hours: Temp Pulse Resp BP Pulse Ox 97.5 F L 61 18 147/74 H 96 03/24/21 04:00 03/24/21 04:00 03/24/21 04:00 03/24/21 04:00 03/24/21 04:00 Laboratory Results - last 24 hr 03/23/21 06:15: POC Glucose 284 H 03/23/21 11:40: POC Glucose 308 H* 03/23/21 16:16: POC Glucose 321 H* 03/23/21 19:55: POC Glucose 301 H* 03/24/21 05:14: POC Glucose 151 H 03/24/21 05:36: WBC 4.6 L, RBC 3.14 L, Hgb 9.1 L, Hct 29.8 L, MCV 94.9, MCH 29.1, MCHC 30.7 L, RDW 15.0, Plt Count 248, MPV 8.9, Neut % (Auto) 70.4, Lymph % (Auto) 17.7, [place] % (Auto) 8.2, Eos % (Auto) 3.2, Baso % (Auto) 0.5, Neut # (Auto) 3.3, Lymph # (Auto) 0.8, [place] # (Auto) 0.4, Eos # (Auto) 0.2, Baso # (Auto) 0.0 03/24/21 05:36: Sodium 139, Potassium 5.2 H, Chloride 104, Carbon Dioxide 28, Anion Gap 12.2, BUN 56 H, Creatinine 1.70 H, Estimated Creat Clear 23, Estimated GFR 29 L, Est GFR ( Amer) 36 L, Glucose 163 H, Calcium 8.7 Vital Signs - 24 hr 03/23/21 11:33 03/23/21 12:00 03/23/21 16:00 Temperature 97.2 F L 97.3 F L Pulse Rate 65 65 Pulse Rate [Left Radial] 65 61 Pulse Rate [Right] Respiratory Rate 20 22 Blood Pressure [Right Arm] 157/71 H 128/66 02 Sat by Pulse Oximetry 94 L 93 L 03/23/21 19:08 03/23/21 20:00 03/24/21 00:00 Temperature 97.8 F Pulse Rate 70 Pulse Rate [Left Radial] 68 68 Pulse Rate [Right] Respiratory Rate 18 Blood Pressure [Right Arm] 162/74 H 159/64 H 02 Sat by Pulse Oximetry 88 L 94 L 96 03/24/21 00:40 03/24/21 04:00 Temperature 97.5 F L Pulse Rate 60 60 Pulse Rate [Left Radial] Pulse Rate [Right] 61 Respiratory Rate 18 Blood Pressure [Right Arm] 147/74 H 02 Sat by Pulse Oximetry 96 I & O for Last 24 hours: Intake & Output 03/21/21 03/22/21 03/23/21 03/24/21 23:59 23:59 23:59 23:59 Intake Total 1560 / 1560 600 / 600 1920 / 1920 Output Total 600 / 600 0 / 0 700 / 700 400 / 400 Balance 960 / 960 600 / 600 1220 / 1220 -400 / -400 Weight 326 lb 326 lb 2 oz 345 lb 4 oz - Constitutional no acute distress - *Routine HEENT Exam Head: Present: normocephalic Eye: Present: EOMI, PERRL ENT: Present: mucous membranes moist - *Routine Neck Exam Present: supple. Absent: lymphadenopathy - *Routine Respiratory Exam Present: wheezes (fewer today, lungs more clear) - *Routine Cardiovascular Exam Present: RRR - *Routine Abdominal Exam Present: soft, normoactive bowel sounds, obese. Absent: tenderness - *Routine Extremities Exam Absent: cyanosis, clubbing, edema - *Routine Skin Exam Present: warm, rash (chronic changes to both lower legs) - *Routine Neurological Exam Present: alert, oriented X3 Assessment and Plan (1) Acute respiratory failure with hypoxia Status: Acute Category: Medical Code(s): J96.01 - Acute respiratory failure with hypoxia (2) History of [place] (myocardial infarction) Status: Chronic Category: Medical Code(s): I25.2 - Old myocardial infarction (3) Obesity, morbid, BMI 50 or higher Status: Chronic Category: Medical Code(s): E66.01 - Morbid (severe) obesity due to excess calories (4) Chronic renal insufficiency, stage III (moderate) Status: Chronic Category: Medical Code(s): N18.3 - Chronic kidney disease, stage 3 (moderate) (5) Hyperlipidemia Status: Chronic Category: Medical Code(s): E78.5 - Hyperlipidemia, unspecified (6) Hypertension Status: Chronic Category: Medical Code(s): I10 - Essential (primary) hypertension (7) Hypothyroid Status: Chronic Qualifiers: Hypothyroidism type: acquired Qualified Code(s): E03.9 - Hypothyroidism, unspecified Category: Medical Code(s): E03.9 - Hypothyroidism, unspecified (8) Type 2 diabetes mellitus Sta
--- NOTE | 2021-03-24 11:20 | HMH.DCSUM ---
General - General Admission date:: 03/17/21 <Fei Howe - 03/25/21 08:11> 03/17/21 <Cassie Brooks - 03/24/21 11:27> Discharge date: 03/24/21 <Cassie Brooks - 03/24/21 11:27> HPI HPI: Ms. Guerra was a 75-year-old female with a history of hypertension, hyperlipidemia, type 2 diabetes, and history of an SD. She stated she had been feeling poorly for the past few weeks. She had been seen a week prior at the urgent treatment center and diagnosed with bronchitis. She had a negative Covid test at that time. She was prescribed antibiotics and sent home. She stated she began feeling worse. Her shortness of breath was extremely worse when she was up ambulating around in her home. She had no supplemental oxygen at home. In the emergency room, her oxygen sats were 93 to 95% on room air and her renal functions were elevated. Her chest x-ray showed nothing acute. When nursing got her up to ambulate, her oxygen saturations dropped into the 80s. She was therefore admitted for further evaluation and treatment. An echo was ordered and she was given Lasix due to an elevated BNP of 1500. She had another Covid swab done in the emergency room and it was negative, as well. 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 <Cassie Brooks - 03/24/21 11:27> Hospital Course Hospital Course: The morning following admission she still felt weak but her breathing had improved. She was noted to have had a large amount of urinary output after receiving lasix but further doses were held due to declining renal function. By the morning of 03/20/21, her breathing had improved and she had been weaned to room air. Her renal function improved and she received another dose of lasix. She remained stable through the day, however, her nasal oxygen had to be replaced overnight due to hypoxia. CXR was repeated on 03/21/21 which showed cardiomegaly with no definite acute findings. PT was consulted. Her lisinopril was resumed. On 03/22/21 she was noted to have some wheezing and received a dose of lasix. Care management continued to work on discharge planning. She had an episode of hypothermia overnight although she denied being symptomatic and her body temperature returned to normal with warming blanket. She continued to improve throughout the day on 02/20/21 and by the morning of 02/21/21 she was stable for discharge to [facility] for rehab with supplemental nasal oxygen at 2LPM and close monitoring of her H&H, electrolytes, and renal function. <Cassie Brooks - 03/24/21 11:34> Objective Vital signs: Temp Pulse Resp BP Pulse Ox 98.6 F 70 20 162/68 H 95 03/24/21 12:00 03/24/21 12:00 03/24/21 12:00 03/24/21 12:00 03/24/21 12:00 <Fei Howe - 03/25/21 08:11> Temp Pulse Resp BP Pulse Ox 98.2 F 63 18 154/72 H 96 03/24/21 08:00 03/24/21 08:00 03/24/21 08:00 03/24/21 08:00 03/24/21 08:00 <Cassie Brooks - 03/24/21 11:27> Results Labs on day of discharge: Labs from last 24 hours 03/24/21 11:37 POC Glucose 210 H <Fei Howe - 03/25/21 08:11> Labs from last 24 hours 03/24/21 03/24/21 03/24/21 05:36 05:36 05:14 WBC 4.6 L RBC 3.14 L Hgb 9.1 L Hct 29.8 L MCV 94.9 MCH 29.1 MCHC 30.7 L RDW 15.0 Plt Count 248 MPV 8.9 Neut % (Auto) 70.4 Lymph % (Auto) 17.7 [place] % (Auto) 8.2 Eos % (Auto) 3.2 Baso % (Auto) 0.5 Neut # (Auto) 3.3 Lymph # (Auto) 0.8 [place] # (Auto) 0.4 Eos # (Auto) 0.2 Baso # (Auto) 0.0 Sodium 139 Potassium 5.2 H Chloride 104 Carbon Dioxide 28 Anion Gap 12.2 BUN 56 H Creatinine 1.70 H Estimated Creat Clear 23 Estimated GFR 29 L Est GFR ( Amer) 36 L Glucose 163 H POC Glucose 151 H Calcium 8.7 09/08/1203/23/21 03/23/21 19:55 16:16 11:40 WBC RBC Hgb Hct MCV MCH MCHC RDW Plt Count MPV Ne
[2021-03-24 11:45] LABS: POC Glucose,Bedside 210 (70-110)
[2021-03-24 12:00] VITALS: BP 162/68; PULSE 70; RESP 20; TEMP 37; O2SAT 95
--- NOTE | 2021-03-24 13:40 | PC.NURSE ---
Report called to Tati @ [facility]. Awaiting Peggy at this time for transport.
== END 2021-03-24 14:30 ==
LOC: ER 16:29 → 2ND 18:09
PROVIDERS: Admitting Provider Family Medicine; Emergency Provider Family Medicine; PCP Family Medicine; Visit Provider Family Medicine
DX: J96.01 Acute respiratory failure with hypoxia (principal); E11.22 Type 2 diabetes mellitus with diabetic chronic kidney disease; Z79.4 Long term (current) use of insulin; I12.9 Hypertensive chronic kidney disease with stage 1 through stage 4 chronic kidney disease, or unspecified chronic kidney disease; Z95.0 Presence of cardiac pacemaker; Z20.822 Contact with and (suspected) exposure to COVID-19; E66.01 Morbid (severe) obesity due to excess calories; Z68.44 Body mass index [BMI] 60.0-69.9, adult; N18.30 Chronic kidney disease, stage 3 unspecified; Z79.899 Other long term (current) drug therapy; Z95.5 Presence of coronary angioplasty implant and graft; R06.9 Unspecified abnormalities of breathing
CPT/HCPCS: G0378; 36415; 71045; 80048; 82272; 82947; 82962; 83880; 84484; 85025; 93005; 93306; 94761; 97110; 97116; 97162; 97165; 97530; 97535; 99284; G0328; Q9957; U0003